=== PATIENT | male | born 1960 | race Caucasian/White ===

== ENCOUNTER 2018-10-05 12:41 | Inpatient (IN) | payer SELFPAY ==
[2018-10-05] MEDS ORDERED: ISOVUE-370 76%-LOCM 1 ML ONE (13:57)
[2018-10-05 14:12] LABS: #Eosinphils 0.1 thou/uL (0.0-0.7); #Lymphocytes 0.6 thou/uL (1.20-3.40); #Monocytes 0.6 thou/uL (0.11-0.59); #Neutrophils 5.6 thou/uL (1.40-6.50); %Basophils 0.3 % (0.0-1.0); %Eosinophils 1.9 % (0.0-10.0); %Lymphocytes 8.7 % (21.0-51.0); %Monocytes 9.2 % (0.0-10.0); Hemoglobin 15.7 g/dL (14.0-18.0); Mean Corpuscular HGB CONC 31.5 g/dL (32.0-36.0); Mean Corpuscular Hemoglobin 25.3 pg (27.0-31.0); Mean Corpuscular Volume 80.2 fL (78.0-98.0); Mean Platelet Volume 7.4 fL (7.4-10.4); Platelet Count 224 thou/uL (130-400); RBC Distribution Width 16.5 % (11.5-14.5); Red Blood Cell (RBC) Count 6.23 mill/uL (4.70-6.10)
[2018-10-05 14:16] LABS: INR-International Normal Ratio 1.2; PTT 33.5 SEC (22.9-36.1); Prothrombin Time 15.2 SEC (12.0-14.7)
[2018-10-05 14:32] LABS: ALT (SGPT) 9 U/L (8-55); AST (SGOT) 36 U/L (5-34); Albumin 3.3 g/dL (3.5-5.0); Alkaline Phosphatase 186 U/L (40-150); Anion Gap 14 mmol/L (10-20); BUN (Urea Nitrogen) 22 mg/dL (8.4-25.7); Bilirubin, Total 5.2 mg/dL (0.2-1.2); Calc. Creatinine Clearance 0 mL/min (70-130); Calcium 9.5 mg/dL (7.8-10.44); Carbon Dioxide 30 mmol/L (22-29); Chloride 88 mmol/L (98-107); Estimated GFR-MDRD 58; Globulin 4.8 g/dL (2.4-3.5); Glucose 118 mg/dL (70-105); Lipase 7 U/L (8-78); Protein, Total 8.1 g/dL (6.0-8.3); Sodium 128 mmol/L (136-145)
--- NOTE | 2018-10-05 16:48 | ULT ---
Sonogram right upper quadrant HISTORY: Right upper quadrant pain. FINDINGS: Gallbladder is incompletely distended. No internal stones are apparent. Common duct is 0.6 cm. Liver has a heterogeneous echotexture without focal mass or intrahepatic biliary dilatation. Small amount of free fluid within the right upper quadrant. IMPRESSION: No evidence of gallstones or biliary obstruction. Small amount of free fluid right upper quadrant.
--- NOTE | 2018-10-05 16:53 | ULT ---
Scrotal sonogram with duplex evaluation HISTORY: Testicular pain and swelling. FINDINGS: Right testicle is 4.0 cm and left is 4.8 cm. Each has a normal appearance with good color a nd spectral Doppler flow. Small amount of fluid within the right side of the scrotum. Neither epididymis well delineated. There is marked thickening of the skin overlying both sides of the scrotu m. IMPRESSION: No evidence of testicular mass or torsion. Prominent diffuse scrotal skin thickening. Very small right hydrocele.
--- NOTE | 2018-10-05 17:07 | PDOC.FPRHP ---
- History of Present Illness Chief Complaint: Abdominal and scrotal swelling History of Present Illness: 58 yo M with past medical history of Cirrhosis presents with scrotal swelling, abdominal distention, and cough and was recently seen in [facility] 1 week ago for the same symptoms. 2 weeks ago patient noticed increased swelling of lower abdomen, swelling, and legs. He was seen at [facility] in [place] who placed him on Furosemide and Spironolactone. Patient reports swelling never improved and continued to worsen. Increased coughing in past week but first started 2-3 weeks ago. Noticed increased swelling with breakdown bleeding in his scrotum that caused him to come in today. 120 mg of liquid Lasix, kept 2-3hrs, sent home, doubled Furosemide from 80 to 160/day---in [facility] Cirrhosis of liver since 2016, unknown cause, has had extensive workup done by [facility], in [place] Meds: Milk Thistle, fish oil, black cumin sea oil, potassium 100mg, CoQ10 ED Course: In the ED, a CT was done in that showed scant peritoneal fluid, pulmonary edema , and a large left pleural effusion. He had a bilirubin of 5.2 and upon examination had scrotal swelling, so they did a RUQ US and Scrotal US. He did not receive Lasix in the ED. - Allergies/Adverse Reactions Allergies Allergy/AdvReac Type Severity Reaction Status Date / Time No Known Allergies Allergy Verified 10/05/18 19:38 - Home Medications Medication Instructions Recorded Confirmed Type Fish Oil 1,000 mg PO DAILY 10/05/18 10/05/18 History Furosemide [Lasix] 40 mg PO BID 10/05/18 10/05/18 History Milk Thistle 150 mg PO DAILY 10/05/18 10/05/18 History Potassium 99 mg PO DAILY 10/05/18 10/05/18 History Spironolactone 100 mg PO DAILY 10/05/18 10/05/18 History Ubidecarenone [CoQ-10] 100 mg PO DAILY 10/05/18 10/05/18 History - History PMHx: Cirrhosis, Polysubstance abuse, CHF PSHx: None FHx: Dad from heart disease. Mom has Diabetes. Social: Former smoker, quit 4 years ago. Used to smoke 1.5 ppd for many years. Denies EtOH use. Admits to marijuana use for many years, last use 3 weeks ago. - Review of Systems General: reports: fatigue. denies: fever/chills, weight/appetite/sleep changes Eyes: denies: eye pain, vision changes ENT: denies: nasal congestion, rhinorrhea Respiratory: reports: cough, shortness of breath. denies: congestion Cardiovascular: reports: edema. denies: chest pain, palpitation Gastrointestinal: reports: abdominal pain. denies: nausea, vomiting, diarrhea, constipation Genitourinary: denies: incontinence, dysuria, polyuria Skin: denies: rashes, lesions, jaundice Musculoskeletal: denies: pain, tenderness, arthritis/arthralgias Neurological: reports: weakness. denies: numbness, syncope, seizure Psychological: denies: anxiety, depression - Vital signs BP: [106/64] HR: [73] RR: [20] Tmax: [98.0] Pox: [94]% on [RA] Wt: [159 kg] - Physical Exam Constitutional: awake, alert and oriented -Constitutional: Short of breath on exam. Obese. HEENT: normocephalic and atraumatic, EOMI, conjunctiva clear, no scleral icterus , grossly normal vision, grossly normal hearing Neck: supple, FROM, no JVD Chest: no-tender to palpation Heart: RRR, normal S1/S2 Lungs: other (Breath sounds were decreased in all but the right upper lung field ) Abdomen: soft, other -Abdomen: Moderately distended abdomen, severely distended scrotum. Anasarca present with positive fluid wave. Musculoskeletal: normal structure, ROM grossly normal -Musculoskeletal: 2+ pitting edema in bilateral lower extremities. Neurological: no focal deficit, normal sensation Skin: other (Breakdown of skin on scrotum with dried blood observed.) Heme/Lymphatic: no purpura, no petechia Psychiatric: normal mood and affect, good judgment and insight, intact recent and remote memory FMR H&P: Results - Labs Result Diagrams: 10/06/18 04:20 10/06/18 04:20 Lab results: WBC 7.0 thou/uL (4.8-10.8) 10/05/18 13:59 Hgb 15.7 g/dL (14.0-18.0) 10/05/18 13:59 Hct 49.9 % (42.0-52.0) 10/05/18 13:59 MCV 80.2 fL (78.0-98.0) 10/05/18 13:59 Plt Count 224 thou/uL (130-400) 10/05/18 13:59 Neutrophils % 80.0 % (42.0-75.0) H 10/05/18 13:59 Sodium 128 mmol/L (136-145) L 10/05/18 13:59 Potassium 4.0 mmol/L (3.5-5.1) 10/05/18 13:59 Chloride 88 mmol/L (98-107) L 10/05/18 13:59 Carbon Dioxide 30 mmol/L (22-29) H 10/05/18 13:59 BUN 22 mg/dL (8.4-25.7) 10/05/18 13:59 Creatinine 1.28 mg/dL (0.7-1.3) 10/05/18 13:59 Glucose 118 mg/dL (70-105) H 10/05/18 13:59 Lactic Acid 2.1 mmol/L (0.5-2.2) 10/05/18 13:59 Calcium 9.5 mg/dL (7.8-10.44) 10/05/18 13:59 Total Bilirubin 5.2 mg/dL (0.2-1.2) H 10/05/18 13:59 AST 36 U/L (5-34) H 10/05/18 13:59 ALT 9 U/L (8-55) 10/05/18 13:59 Alkaline Phosphatase 186 U/L (40-150) H 10/05/18 13:59 Serum Total Protein 8.1 g/dL (6.0-8.3) 10/05/18 13:59 Albumin 3.3 g/dL (3.5-5.0) L 10/05/18 13:59 Lipase 7 U/L (8-78) L 10/05/18 13:59 FMR H&P: A/P - Problem List (1) Volume overload Current Visit: Yes Status: Acute Code(s): E87.70 - FLUID OVERLOAD, UNSPECIFIED (2) Hyperbilirubinemia Current Visit: Yes Status: Acute Priority: Medium Code(s): E80.6 - OTHER DISORDERS OF BILIRUBIN METABOLISM (3) Elevated brain natriuretic peptide (BNP) level Current Visit: Yes Status: Acute Code(s): R79.89 - OTHER SPECIFIED ABNORMAL FINDINGS OF BLOOD CHEMISTRY (4) Pleural effusion, left Current Visit: Yes Status: Acute Priority: Medium Code(s): J90 - PLEURAL EFFUSION, NOT ELSEWHERE CLASSIFIED (5) Hyponatremia Current Visit: Yes Status: Acute Priority: Medium Code(s): E87.1 - HYPO- OSMOLALITY AND HYPONATREMIA (6) Scrotal swelling Current Visit: Yes Status: Acute Code(s): N50.89 - OTHER SPECIFIED DISORDERS OF THE MALE GENITAL ORGANS (7) Cirrhosis Current Visit: Yes Status: Acute Code(s): K74.60 - UNSPECIFIED CIRRHOSIS OF LIVER (8) Pelvic lymphadenopathy Current Visit: Yes Status: Acute Code(s): R59.0 - LOCALIZED ENLARGED LYMPH NODES - Plan 58 yo M with history of cirrhosis who presented with abd distention, cough, scrotal swelling who was admitted for hyponatremia. 1. Volume Overload * CHF vs. Cirrhosis * Scrotal swelling with anasarca and Left pleural effusion, will see if there is resolution with diuresis * BNP: 230 at [facility] * Lasix 80 mg IV now and scheduled BID * Restart Spironolactone home medication * Order ECHO, CMP, Lipid panel, HIV, RPR, A1C, Repeat BNP * Strict I&Os, Daily weight checks. 2. Hyponatremia * Thought to be chronic: Na 1 wk ago 131 > Now 128 * No AMS, Seizures, AAOx3 * Urine Osm and Na 3. Hyperbilirubenemia * Bili: 5.2, which is increased from [place] * Elevated Alk Phos: 169, AST: 39 * Coag panel pending * Ordered: Hepatitis panel, Direct Bili, and Ammonia Code status: Full code Diet: Heart healthy diet with fluid restriction DVT Prophylaxis: SCDs FMR H&P: Upper Level - Plan Date/Time: 10/05/18 1704 58 yo male with pmhx of cirrhosis, unknown etiology, presents with s/s of volume overload. Vitals: stable PE: edematous (pitting) scrotal swelling lower extremity pitting edema bilaterally to hips with anasarca present, obvious venous stasis nontender abdomen however protuberent, no fluid wave present distant heart sounds decreased breath sounds, crackles left sided lung Labs: BNP: 235 (7/10) Bili: 5.2 Alk phosph 186 AST 39 glucose 118 Na 128 Cl [address]: minimal ascites, pulmonary edema, left pulmonary effusion, diffuse pelvic lymphadenopathy Abdominal US: no gallstones/cholecystitis Testicular US: negative for mass or torsion. A/P: #Elevated BNP and Volume overload-2/2 suspected CHF vs cirrhosis, will order an echo and give 80IV lasix now as the pt has been taking 80mg PO BID at home. Will reassess fluid status in the am and continue with lasix. Will restart home spironolactone once patient med rec'd. Pt placed on strict I/Os, daily weights, heart healthy diet with fluid restriction. #Scrotal Swelling-scrotal US negative for torsion. Suspect 2/2 CHF vs cirrhosis , see above. #New left pleural effusion with cough and mild shortness of breath-suspected 2/ 2 CHF vs cirrhosis, although cannot rule out malignancy. Saturating well on room air. Will order 80iv lasix and consider diagnostic thoracentesis in the am. #Pelvic lymphadenopathy-Suspect lymphoproliferative disorder. Consider lymph node biopsy, possibly with interventional radiology consult? Vs outpatient workup #Hyponatremia-2/2 chf vs cirrhosis, will check urine sodium, osms to rule out other causes, will recheck cmp in the am #Hyperbilirubinemia-with elevated alk phosh and AST, RUQ negative for gallbladder disease, will check a hepatitis panel, HIV/RPR, coag panel, total and direct bilirubin, and ammonia #[id number] belly, not concerned for SBP, abdominal CT with minimal fluid for draining/paracentesis. Ammonia ordered. Pt alert and oriented x 3. Kidney function wnl. Uknown etiology. Hep B/C ordered. Denies alcohol use. #Obesity-will check lipid panel, hba1c Diet: HH, fluid restrict Activity: as tolerated CODE: full DVT: Cristobal Ellis MD, PGY-3 Addendum - Attending - Attending Attestation Date/Time: 10/06/18 7775 I personally evaluated the patient and discussed the management with Dr. Ellis and Maral. Seen on day of admission. I agree with the History, Examination, Assessment and Plan documented above with any addition or exceptions noted below. No distress. No sob currently. RRR, lungs with bilateral basilar crackles and distant lung sounds - effusion not readily noted BS+, NTTP, no fluid wave on my exam, just obesity Marked scrotal and suprapubic swelling, as well as lower extremity edema Labs and imaging reviewed. Urine studies pending. 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 Tobacco history noted. -low suspicion of spont bact empyema, but would d/w pulm or GI in AM -I attempted to locate the ultrasound for 30 minutes to characterize it but was unable to find the machine Lympadenopathy -will likely consult in AM to discuss biopsy vs other workup
--- NOTE | 2018-10-05 17:08 | CT ---
CT ABDOMEN AND PELVIS WITH CONTRAST: 10/05/18 HISTORY: Cirrhosis. Abdominal pain. COMPARISON: None. FINDINGS: There is moderate pulmonary edema. Moderate layering left pleural effusion. No significant pericardial effusion. The hepatic contour appears cirrhotic. There is some small volum e ascites within the abdomen. Mild third spacing of fluid. Normal proximal small bowel rotation. Mild pancreatic atrophy. Spleen is unremarkable. No hydronephrosis. Celiac trunk and superior mesenteric arteries are patent. Numerous mildly prominent lymph nodes are present in the external iliac as well as the inguinal regio n bilaterally which are symmetric. Also retroperitoneal and periaortic lymph nodes. There is also ab normal very enlarged bilateral external iliac lymph nodes with short axis measurements of 2 cm. There is skin thickening of the lower abdominal wall. There are also abnormally enlarged lateral vasc ular lymph nodes as well as obturator lymph nodes. Small diverticular disease sigmoid colon without active current inflammation. IMPRESSION: 1. Moderate pulmonary edema and moderate layering left pleural effusion. 2. Small volume ascites not likely enough for paracentesis. 3. Extensive pelvic adenopathy. Outpatient workup for lymphoproliferative disorder is recommende d. There are bilateral relatively asymmetric external iliac and internal iliac obturator lymph nodes as well as lateral vascular lymph nodes and inguinal lymph nodes. 4. Hepatic cirrhosis and mild splenomegaly. 5. Mild diverticular disease sigmoid colon without active current inflammation. POS: HOME
[2018-10-05 17:52] LABS: Bilirubin Negative (Negative); Blood, Urine Negative (Negative); Clarity Clear (Clear); Glucose, Urine (Dipstick) Normal (Negative); Leukocyte Negative Leu/uL (Negative); Nitrite Negative (Negative); Protein, Urine (Dipstick) Negative (Neg-Trace); Urobilinogen 3 mg/dL (Less than 2)
[2018-10-05 18:11] LABS: Lactic Acid 2.6 mmol/L (0.5-2.2)
[2018-10-05] MEDS ORDERED: Ondansetron ODT 4 MG TAB SL PRN (18:46)
[2018-10-05] MEDS ORDERED: Ondansetron PF 4 MG/2 ML Vial IVP PRN (18:46)
[2018-10-05] MEDS ORDERED: Acetaminophen 325 MG TAB PO PRN (18:46)
[2018-10-05] MEDS ORDERED: HYDROcodone/Acetaminophen 5/325 mg Tablet PO PRN ×2 (18:46)
[2018-10-05] MEDS ORDERED: Calcium Carbonate 500 MG ChewTAB PO PRN (19:16)
[2018-10-05] MEDS ORDERED: Ondansetron ODT 4 MG TAB PO PRN (19:16)
[2018-10-05] MEDS ORDERED: Senokot S 8.6-50 MG TAB PO PRN (19:16)
[2018-10-05] MEDS ORDERED: Furosemide 100 MG/10 ML VIAL SLOW IVP SCH (19:45)
[2018-10-05 19:53] LABS: HBSAg Index 0.34 S/CO (0-0.99); HIV (1/2) Antibody/Antigen Non-Reactive (NonReactive); HIV 1/2 INDEX 0.16 S/CO (<1.00); Hep B Surf Ag Non-Reactive S/CO (NonReactive); Hep C IgG Ab Non-Reactive (NonReactive); Hep C Index 0.11 S/CO (0-0.79); Syphilis Antibody Nonreactive (Nonreactive); Syphilis Antibody Index 0.06 S/CO (<1.00 Non-Reactive)
[2018-10-05 20:00] VITALS: BMI 43.2
[2018-10-06 04:35] LABS: #Basophils 0.1 thou/uL (0.0-0.2); #Eosinphils 0.1 thou/uL (0.0-0.7); #Lymphocytes 0.7 thou/uL (1.20-3.40); #Monocytes 0.9 thou/uL (0.11-0.59); #Neutrophils 5.3 thou/uL (1.40-6.50); %Basophils 0.9 % (0.0-1.0); %Eosinophils 1.9 % (0.0-10.0); %Lymphocytes 9.2 % (21.0-51.0); %Monocytes 12.5 % (0.0-10.0); %Neutrophils 75.5 % (42.0-75.0); Hemoglobin 14.6 g/dL (14.0-18.0); Mean Corpuscular HGB CONC 31.5 g/dL (32.0-36.0); Mean Corpuscular Hemoglobin 25.5 pg (27.0-31.0); Mean Corpuscular Volume 80.7 fL (78.0-98.0); Mean Platelet Volume 7.3 fL (7.4-10.4); Platelet Count 219 thou/uL (130-400); RBC Distribution Width 16.2 % (11.5-14.5); Red Blood Cell (RBC) Count 5.72 mill/uL (4.70-6.10)
[2018-10-06 04:59] LABS: ALT (SGPT) 10 U/L (8-55); AST (SGOT) 40 U/L (5-34); Alkaline Phosphatase 169 U/L (40-150); Anion Gap 15 mmol/L (10-20); BUN (Urea Nitrogen) 23 mg/dL (8.4-25.7); Bilirubin, Total 5.1 mg/dL (0.2-1.2); Calc. Creatinine Clearance 141 mL/min (70-130); Calcium 9.4 mg/dL (7.8-10.44); Carbon Dioxide 30 mmol/L (22-29); Chloride 88 mmol/L (98-107); Estimated GFR-MDRD 60; Glucose 99 mg/dL (70-105); Potassium 4.3 mmol/L (3.5-5.1); Sodium 129 mmol/L (136-145)
--- NOTE | 2018-10-06 05:09 | PDOC.FM ---
- Subjective Subjective: Pt says he feels like he can breath a little easier. He reports pain in his scrotum only when getting up from using the bathroom. He says he does feel improved from yesterday and lasix were effective. - Objective MAR Reviewed: Yes Vital Signs & Weight: Vital Signs (12 hours) Temp Pulse Resp BP BP Pulse Ox 10/06/18 04:05 97.5 F L 78 18 113/56 L 92 L 10/05/18 23:42 97.9 F 75 20 106/56 L 92 L 10/05/18 18:33 97.7 F 76 20 117/67 92 L Weight Weight 152.044 kg I&O: 10/04/18 10/05/18 10/06/18 06:59 06:59 06:59 Output Total 1750 Balance -1750 Result Diagrams: 10/06/18 04:20 10/06/18 04:20 EKG Reviewed by me: Yes (Prolonged QT but otherwise Normal sinus rhythm) Radiology Reviewed by me: Yes (CT Chest/Abd/Pelvis: L pleural effusion, scan peritoneal fluid, inguinalLAD) Phys Exam - Physical Examination Constitutional: NAD HEENT: PERRLA, moist MMs Neck: no nodes Breath sounds only evident in right upper lung field Cardiovascular: RRR, no significant murmur Gastrointestinal: soft, non-tender, positive bowel sounds Musculoskeletal: edema present (Present all over, but seems to be somewhat improved from yesterday.) Neurological: non-focal, moves all 4 limbs Lymphatic: no nodes Psychiatric: normal affect, A&O x 3 Deviation from normal: Venous stasis up to mid calf. Dx/Plan (1) Volume overload Code(s): E87.70 - FLUID OVERLOAD, UNSPECIFIED Status: Acute (2) Hyperbilirubinemia Code(s): E80.6 - OTHER DISORDERS OF BILIRUBIN METABOLISM Status: Acute (3) Elevated brain natriuretic peptide (BNP) level Code(s): R79.89 - OTHER SPECIFIED ABNORMAL FINDINGS OF BLOOD CHEMISTRY Status : Acute (4) Pleural effusion, left Code(s): J90 - PLEURAL EFFUSION, NOT ELSEWHERE CLASSIFIED Status: Acute (5) Hyponatremia Code(s): E87.1 - HYPO-OSMOLALITY AND HYPONATREMIA Status: Acute (6) Scrotal swelling Code(s): N50.89 - OTHER SPECIFIED DISORDERS OF THE MALE GENITAL ORGANS Status : Acute (7) Cirrhosis Code(s): K74.60 - UNSPECIFIED CIRRHOSIS OF LIVER Status: Acute (8) Pelvic lymphadenopathy Code(s): R59.0 - LOCALIZED ENLARGED LYMPH NODES Status: Acute - Plan Plan: 58 yo M with history of cirrhosis who presented with abd distention, cough, scrotal swelling who was admitted for hyponatremia. 1. Volume Overload * CHF vs. Cirrhosis * Scrotal swelling with anasarca and Left pleural effusion, will see if there is resolution with diuresis * BNP: 230 at [facility], 354.9 today * Lasix 80 mg IV now and scheduled BID * Restart Spironolactone home medication * Ordered ECHO, CMP, Lipid panel, HIV, RPR, A1C, Repeat BNP * Strict I&Os, Daily weight checks. 2. Cirrhosis * non-tender belly, not concerned for SBP * Abdominal CT shows minimal fluid for draining/paracentesis * Ammonia ordered. * AAOx 3. * Kidney function wnl. * Unknown etiology. * Hep B/C neg * Ordered ESR, CRP, Iron studies, ALEJANDRINA, Anti-Sm * Denies alcohol use. 3. Hyponatremia * Thought to be chronic: Na 1 wk ago 131 -> 128 yesterday -> 129 today * No AMS, Seizures, AAOx3 * Urine Osm: 370, Na: 51, likely related to cirrhosis * Will recheck CMP in am 4. Hyperbilirubenemia * Bili: 5.2, which is increased from [place] * Elevated Alk Phos: 169, AST: 39 on admission, Hep panel Negative, Direct Bili2.7 * Coag panel pending * RUQ: Negative for gallbladder disease. * Ordered: Hepatitis panel, Direct Bili, and Ammonia 5. Scrotal Swelling * Scrotal US negative for torsion * Suspect 2/2 CHF vs cirrhosis. 6. New left pleural effusion with cough and SOB * Suspected 2/2 CHF vs cirrhosis, although cannot rule out malignancy. * Saturating moderately well on room air. * Will order 80 IV lasix and consider diagnostic thoracentesis in the am. * Pulm consult (10/06), appreciate recs 7. Pelvic lymphadenopathy * Suspect lymphoproliferative disorder. * IR consult (10/06), appreciate recs 8. Obesity * Will check lipid panel, hba1c Activity: As tolerated Code status: Full code Diet: Heart healthy diet with fluid restriction of 1500 cc DVT Prophylaxis: SCDs
[2018-10-06] MEDS: Spironolactone 100 MG TAB PO SCH (08:56)
[2018-10-06] MEDS ORDERED: Furosemide 100 MG/10 ML VIAL SLOW IVP SCH (09:00)
--- NOTE | 2018-10-06 12:48 | PRG ---
DATE OF SERVICE: 10/06/2018 Mr. Good is a pleasant 58-year-old man, who presented with increasing peripheral edema. He has a history of cirrhosis, whose cause currently is not known. He was found on abdominal CT to have some significant lymph node enlargement in the pelvis, which will likely need to be interventionally biopsied for diagnostic purposes. He does not give a history of any fever, night sweats, or weight loss. He also has a left-sided pleural effusion, which we will ask Pulmonology or Interventional Radiology to obtain fluid for culture and study. He is slightly hyponatremic and we are gradually replacing this with IV fluids. His hepatitis B and C serologies are negative. His HIV and RPR were likewise negative. We will also ask for input from GI regarding the cause of his cirrhosis. Job ID: [id number]
[2018-10-06] MEDS ORDERED: Furosemide 40 MG/4 ML VIAL SLOW IVP SCH (15:00)
[2018-10-06 15:07] LABS: CRP (Inflammatory) 8.48 mg/dL (= or < 0.5)
[2018-10-06 16:44] LABS: ANA Symphony (Qualitative) Negative (Negative); ANA Symphony (Quantitative) 0.2 Ratio (< 0.7 Negative); dsDNA IgG Antibody 2.2 IU/mL (<10 Negative)
--- NOTE | 2018-10-06 21:54 | PDOC.FM ---
- Subjective Subjective: Pt says shortness of breath is much improved. He feels a lot better. He still has soreness in his scrotum, but he can tell he is getting better. - Objective MAR Reviewed: Yes Vital Signs & Weight: Vital Signs (12 hours) Temp Pulse Resp BP Pulse Ox 10/06/18 19:27 98.5 F 80 16 102/57 L 93 L 10/06/18 16:00 98.3 F 74 16 107/57 L 92 L 10/06/18 11:36 97.9 F 78 18 113/64 93 L Weight Weight 152.044 kg I&O: 10/05/18 10/06/18 10/07/18 06:59 06:59 06:59 Intake Total 1500 920 Output Total 1750 1450 Balance -250 -530 Result Diagrams: 10/06/18 04:20 10/07/18 08:25 Phys Exam - Physical Examination Constitutional: NAD HEENT: PERRLA, sclera anicteric Neck: no nodes Respiratory: clear to auscultation bilateral Cardiovascular: RRR, no significant murmur Gastrointestinal: soft, non-tender, positive bowel sounds Musculoskeletal: pulses present, edema present Neurological: non-focal, moves all 4 limbs Lymphatic: no nodes Psychiatric: A&O x 3 Deviation from normal: Venous statsis ulcer Dx/Plan (1) Volume overload Code(s): E87.70 - FLUID OVERLOAD, UNSPECIFIED Status: Acute (2) Hyperbilirubinemia Code(s): E80.6 - OTHER DISORDERS OF BILIRUBIN METABOLISM Status: Acute (3) Elevated brain natriuretic peptide (BNP) level Code(s): R79.89 - OTHER SPECIFIED ABNORMAL FINDINGS OF BLOOD CHEMISTRY Status : Acute (4) Pleural effusion, left Code(s): J90 - PLEURAL EFFUSION, NOT ELSEWHERE CLASSIFIED Status: Acute (5) Hyponatremia Code(s): E87.1 - HYPO-OSMOLALITY AND HYPONATREMIA Status: Acute (6) Scrotal swelling Code(s): N50.89 - OTHER SPECIFIED DISORDERS OF THE MALE GENITAL ORGANS Status : Acute (7) Cirrhosis Code(s): K74.60 - UNSPECIFIED CIRRHOSIS OF LIVER Status: Acute (8) Pelvic lymphadenopathy Code(s): R59.0 - LOCALIZED ENLARGED LYMPH NODES Status: Acute - Plan Plan: 58 yo M with history of cirrhosis who presented with abd distention, cough, scrotal swelling who was admitted for hyponatremia. 1. Volume Overload * CHF vs. Cirrhosis * Scrotal swelling with anasarca and Left pleural effusion, will see if there is resolution with diuresis * BNP: 230 at [place], 354.9 today * He received 2 doses of Lasix 80 mg IV and 40 mg IV yesterday afternoon. * Restarted Spironolactone his home medication, but increased the dose. * Ordered ECHO, CMP, Lipid panel, HIV, RPR, A1C, Repeat BNP * Strict I&Os- -565 yesterday. Daily weight checks. * ECHO: EF was 50-55% with thickened aortic leaflets, mild mitral regurg, and a dilated IVC. 2. Cirrhosis * non-tender belly, not concerned for SBP * Abdominal CT shows minimal fluid for draining/paracentesis * Ammonia ordered. * AAOx 3. Denies alcohol use. * Kidney function wnl. * Unknown etiology. * Hep B/C neg * ESR was normal at 63, CRP was elevated at 8.48, Iron was 106, TIBC was 268, and Ferritin was 610.80, Ammonia: 41 * ALEJANDRINA & Anti-Sm were both negative. * Will consider ordering HFE gene studies to determine if he has hereditary hemochromatosis. * Consulting GI (10/04) Dr. Burton, appreciate recs. * Dr. Rojo agreed to see him outpatient. 3. Hyponatremia * Thought to be chronic: Na 128 > 129 > 129 * No AMS, Seizures, AAOx3 * Urine Osm: 370, Na: 51, likely related to cirrhosis * Will recheck CMP in am 4. Hyperbilirubenemia * Bili: 5.2, Direct Bili: 2.7, Ammonia * Elevated Alk Phos: 169, AST: 39 on admission, Hep panel Negative, Direct Bili2.7 * Coag panel pending * RUQ: Negative for gallbladder disease. 5. Scrotal Swelling * Scrotal US negative for torsion * Suspect 2/2 CHF vs cirrhosis. 6. New left pleural effusion with cough and SOB * Suspected 2/2 CHF vs cirrhosis, although cannot rule out malignancy. * Saturating moderately well on room air. * Will order 80 IV lasix and consider diagnostic thoracentesis in the am. * Pulm consult (10/06) Dr. Moe, appreciate recs. 7. Pelvic lymphadenopathy * Suspect lymphoproliferative disorder. * Consulting radiology to see if they want to do a biopsy. 8. Obesity * Lipid Panel: TG-87, Chol- 115, LDL-77, HDL- 21 * Atorvastatin 40 mg started * A1C: 6.1% Activity: As tolerated. PT/OT consulted Code status: Full code Diet: Heart healthy diet with fluid restriction of 1500 cc DVT Prophylaxis: SCDs
[2018-10-07 04:25] LABS: Hemoglobin A1c 6.1 % (4.0-6.0)
--- NOTE | 2018-10-07 04:37 | CON ---
DATE OF CONSULTATION: 10/06/2018 HISTORY OF PRESENT ILLNESS: Mr. 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 He has moved up to the [place] area to live on a piece of property that he owns. He says he has been drinking more fluid because of the hot summer and eating more watermelon than he normally does. He presented with anasarca. He has a history of cirrhosis worked up in 2017 at [facility]. He never did have a liver biopsy. He was on Lasix 40 twice a day and 100 mg of spironolactone in the morning. He has had a lifelong history of obesity. His scrotal swelling is the main reason that he came to the emergency room. PAST MEDICAL HISTORY: Remarkable reportedly for cardiomyopathy according to the records, but he did not volunteer this to me. SOCIAL HISTORY: He is a heavy smoker all of his life, but quit a few years ago. He is not a daily drinker. FAMILY HISTORY: Positive for diabetes and vascular disease. REVIEW OF SYSTEMS: Ten point review of systems completed, otherwise negative. PHYSICAL EXAMINATION: GENERAL: A very pleasant gentleman, in no distress. VITAL SIGNS: He is afebrile. Heart rate is 80, respiratory rate is 16, oximetry is 93% on room air, blood pressure 102/57. HEENT: Pupils are equal. Sclerae anicteric. NECK: Supple. No lymphadenopathy. LUNGS: Remarkable for decreased breath sounds at his bases. HEART: Regular rhythm. S1 and S2 are normal. I do not hear murmur or gallop. ABDOMEN: Quite large (he weighs 335 pounds and is 6 feet 2 inches tall). He has stasis changes under his pannus and above his scrotum, and he has a fairly massive scrotum that is about the size of two soft balls. EXTREMITIES: He has thickening of his skin to his knees and stasis changes in both lower extremities. He has never had a sleep study and never been told he snore as an adult, but he says when he was young he snored a lot. He had an abdomen and pelvis CT done yesterday. He had a small amount of ascites. He had small abdominal lymph nodes bilaterally along his iliac and retroperitoneal and periaortic lymph nodes. The skin thickening in his lower abdominal wall could be seen on CT. He had diverticulosis. I reviewed the bottom of his lung windows. He has dependent atelectasis. He has small bilateral pleural effusions. These are not large enough to justify thoracentesis in my opinion. IMPRESSION: Anasarca with significant amount of scrotal edema, a small amount of abdominal ascites and significant lower extremity edema. I would guess with a weight of 335 reported on admission, he has at least 30 to 40 pounds of extra volume on board. He says he has been hospitalized multiple times at [facility] and diuresed. His renal function will have to be watched closely while he is here. Does have modestly elevated ferritin, but I doubt he has hemochromatosis. He does have a bilirubin of 5.1, AST of 40, ALT of 10, and alkaline phosphatase 169. His echocardiogram was normal. His albumin was 3, which is not as low as I was expecting. His INR is 1.2, so he still has good liver synthetic function. I have talked to Dr. Rojo about him and he is happy to follow him in clinic. He will need a focusing machine operator to follow him possibly even monthly for a while, now he is living up in this area. He does not appear to have systolic heart failure. Looking at his echocardiogram, there is no mention of diastolic dysfunction. I would not be surprised if he has sleep apnea. At some point as an outpatient at a minimum, he needs a home sleep study and ideally he needs an inpatient sleep study, but he is uninsured. It is unclear to me what the kwon jones currently is for his inpatient sleep study, but he would probably benefit from this. He continued to be gently diuresed using IV diuretics. He does not need a paracentesis. With an albumin of 3, probably he would not benefit from an albumin infusion. He should be weighed every day and Physical Therapy needs to get involved with him. Probably can go up more on his Aldactone since his potassium is 4.3. I suspect he has cirrhosis secondary to chronic fatty liver. Old records from [facility] would be helpful. The doctors in [place] did talk to him at some point may be getting in to see a transplant doctor given his young age. It is not clearly needed at this point, but gastroenterologists will be helpful in deciding when transplantation would be, but transplantation evaluation would be necessary. This is a 70 minute consult, with greater than 50% of time spent on unit coordinating care. Job ID: [id number]
[2018-10-07 04:47] LABS: Cardiac Risk 5.5 (Less than 4.5)
[2018-10-07] MEDS ORDERED: Furosemide 40 MG/4 ML VIAL SLOW IVP SCH ×2 (06:00→08:10)
--- NOTE | 2018-10-07 07:48 | CON ---
DATE OF CONSULTATION: REASON FOR CONSULTATION: Abdominal swelling, scrotal edema, and mild pedal edema. HISTORY OF PRESENT ILLNESS: Mr. Geovanni Good is a very pleasant, obese 58-year-old male, hospitalized because of what appears to be anasarca. He has scrotal swelling and also edema of the abdominal wall and chest x-ray left pleural effusion. He also has minimal ascites. The patient used to live in [place] before. He has seen Dr. Figueroa with care provider in [place]. Dr. Figueroa told him that he has liver cirrhosis about 2 years ago. The etiology is liver cirrhosis is unclear. The patient is a social drinker, but never used to drink heavy alcohol intake. The patient has no history of drug abuse. No history of any hepatitis. No family history of liver disease. The patient has been hospitalized off and on over the last couple of years at [facility]. He has been hospitalized with similar symptoms like scrotal swelling, abdominal bloating, and leg swelling. The patient tells me that everything goes away when they give him some IV Lasix and put on a low-salt diet and things right away goes away. This time, this has been going on for last couple of weeks. He has since gained about 25 pounds over the last probably about few years. The patient has question of history of heart disease. At some point in time, he was told in [place] area that he possibly has heart disease. The patient has been very active until 2016. Over the last 2 years, he has not been very active and feels short-winded when he walks. He is also obese. Denies any abdominal pain. No chest pain. No difficulty breathing. In fact, he is lying down flat and he is not short of breath. Dyspnea is more of when he tries to exert. He has no hematochezia, no melena. He has had a colonoscopy 2 years ago and he was told he might come back for a colonoscopy because they could not complete the exam for the patient. He never had an EEG done before. He has no relevant history. ALLERGIES: NONE. SOCIAL HISTORY: He smokes a pack of cigarettes per day until 4 years ago. Quit smoking 4 years ago. He also has history of marijuana abuse for years. He quit drinking alcohol at the age of 31, usually he used to drink mostly on the weekend, a couple of beers here and there. No heavy alcohol intake. No IV drug abuse. MEDICAL ILLNESSES: 1. Liver cirrhosis. 2. Ascites and scrotal swelling from before the last couple of years off and on. There is questionable history of heart disease. No history of lung disease. No diabetes. No hypertension. FAMILY HISTORY: Mother with dementia. The family recently moved out from [place] to [place]. He just moved here about couple of months ago. SURGERIES: No major surgical procedures. 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 No seizure disorder. No syncope. No TIA. RESPIRATORY: History of dyspnea with exertion. No chronic coughing. No hemoptysis. CARDIOVASCULAR SYSTEM: No chest pain. No palpitation, orthopnea. Does have history of exertional dyspnea. GASTROINTESTINAL: No hematochezia. No melena. No hematemesis. No vomiting of coffee-ground material. No abdominal pain. GENITOURINARY: No dysuria, hematuria, or frequency. MUSCULOSKELETAL: Unremarkable. ENDOCRINE: Unremarkable. HEENT: Nonrelevant. MEDICATION LIST: Reviewed. He was taking basically milk thistle, fish oil, black cumin sea oil, potassium, etc. He was also start taking CoQ10 PHYSICAL EXAMINATION: GENERAL: The patient is obese, appears very comfortable. He is actually lying down on his back and not feeling short of breath. VITAL SIGNS: Afebrile. Pulse is 74, blood pressure is 107/57. HEENT: Conjunctivae clear. NECK: Supple. No adenitis or thyromegaly. CARDIOVASCULAR SYSTEM: First and second heart sounds heard. LUNGS: Clear to auscultation. ABDOMEN: He appears have subcutaneous edema. Abdomen is nontender. No organomegaly or masses. EXTREMITIES: Chronic stasis dermatitis. SKIN: Feels very rough and hyperpigmented. Has trace edema. He has marked scrotal swelling and edema. LABORATORY DATA: CBC; WBC 7000, hemoglobin is 14.6, hematocrit 46.2, MCV 80.7, platelet count is 219,000, polymorphs 75, lymphocytes 9, monocytes 12. Serum chemistries, he has hyponatremia. Sodium 129, potassium 4.3, chloride 88, bicarb 30, BUN is 23, creatinine is 1.24, glucose is 99. Lactic acid is 2.6, calcium 9.4, iron 106, TIBC 268, bilirubin is 5.1, AST is 40, ALT 10, alkaline phosphatase 169. BNP slightly high at 354. Albumin is 3. CLINICAL IMPRESSION: 1. 58-year-old male with liver cirrhosis of unknown etiology. He has had ascites and scrotal edema in the past, this has been going on over the last 2 years. He has been hospitalized in [facility] couple of times with scrotal swelling. He says with IV Lasix, he gets better right away. At this time, the swelling is still there, not getting better. The etiology is unclear at the present time. 2. Hyponatremia, hypokalemia indicative of free water deficiency. 3. Abnormal liver function tests due to underlying liver cirrhosis. He had a CAT scan of the abdomen which really does not show any liver masses, but does show findings of liver cirrhosis. He also has very minimal ascites that are not palpable. The CAT scan shows mild pulmonary edema and left pleural effusion. RECOMMENDATIONS: 1. Low-sodium diet. 2. IV Lasix. 3. Consider IV albumin 25 g every 8 hours for the next 2 to 3 days to promote diuresis and absorb Further recommendation depending on the hospital course. Job ID: [id number]
[2018-10-07] MEDS: Spironolactone 100 MG TAB PO SCH ×3 (08:20→23:02)
[2018-10-07 08:57] LABS: ALT (SGPT) 9 U/L (8-55); AST (SGOT) 38 U/L (5-34); Albumin 3.1 g/dL (3.5-5.0); Alkaline Phosphatase 171 U/L (40-150); Anion Gap 16 mmol/L (10-20); BUN (Urea Nitrogen) 22 mg/dL (8.4-25.7); Bilirubin, Total 5.7 mg/dL (0.2-1.2); Calc. Creatinine Clearance 142 mL/min (70-130); Calcium 9.6 mg/dL (7.8-10.44); Carbon Dioxide 29 mmol/L (22-29); Chloride 88 mmol/L (98-107); Estimated GFR-MDRD 62; Globulin 4.9 g/dL (2.4-3.5); Glucose 99 mg/dL (70-105); Potassium 4.3 mmol/L (3.5-5.1); Sodium 129 mmol/L (136-145)
[2018-10-07] MEDS ORDERED: Furosemide 100 MG/10 ML VIAL SLOW IVP SCH (09:15)
--- NOTE | 2018-10-07 11:50 | PRG ---
DATE OF SERVICE: 10/07/2018 Mr. Good is resting comfortably in bed, in no distress. He was seen in consultation by Dr. Moe and we appreciate his input. He feels that the pleural effusions are too small to warrant any thoracentesis and attributes them to the patient's total body anasarca likely from cirrhosis. In the event, however, his ferritin level is significantly elevated and this only suggests the possibility of hemochromatosis is a cause of his cirrhosis. We will proceed with genetic testing and have Mr. Good closely follow up as an outpatient. Job ID: [id number]
[2018-10-07] MEDS: Furosemide 100 MG/10 ML VIAL SLOW IVP SCH (13:27)
--- NOTE | 2018-10-07 16:22 | PRG ---
DATE OF SERVICE: 10/07/2018 SUBJECTIVE: Mr. Good said he is feeling a little bit better. His scrotum is still quite large. He is still on IV Lasix. OBJECTIVE: LUNGS: Clear. HEART: Regular rhythm. ABDOMEN: Soft, fairly massive. EXTREMITIES: With severe stasis changes and edema. IMPRESSION AND PLAN: Pleural effusion secondary to his liver disease. He needs to be plugged in with a local business development manager. I have already contacted one of him and he will be happy to see him as an outpatient. There is no reason for me to perform thoracentesis at this time. He does not have enough fluid to perform a paracentesis. Should continue with diuresis in my opinion and close outpatient followup of his weight and his electrolytes and renal function. Job ID: [id number]
--- NOTE | 2018-10-07 19:16 | PRG ---
DATE OF SERVICE: 10/07/2018 SUBJECTIVE: This is a 58-year-old male, admitted to the hospital because of ascites, fluid retention, also scrotal edema. He has history of liver cirrhosis from before. The patient has had ascites and scrotal edema in the past. He did respond to low-salt diet and diuretics. The patient's abdominal CAT scan shows minimal ascites that are not drainable. The patient is slowly getting better. No abdominal pain PHYSICAL EXAMINATION: GENERAL: He is obese. VITAL SIGNS: Afebrile. Pulse is 79, blood pressure 102/68. CARDIOVASCULAR: Within normal limits. LUNGS: Within normal limits. ABDOMEN: Soft. Abdomen is nontender. There are no organomegaly or masses. Bowel sounds normal. RECOMMENDATIONS: 1. Continue low-salt diet. 2. Continue diuretics. 3. Increase ambulation. Job ID: [id number]
[2018-10-07] MEDS: Atorvastatin Calcium 40 MG TAB PO SCH (21:22)
[2018-10-07] MEDS ORDERED: Clopidogrel Bisulfate 75 MG TAB ONE (22:29)
--- NOTE | 2018-10-08 05:47 | PDOC.FM ---
- Subjective Subjective: He says he is steadily improving. He walked around some yesterday. He is eating well. - Objective MAR Reviewed: Yes Vital Signs & Weight: Vital Signs (12 hours) Temp Pulse Resp BP Pulse Ox 10/08/18 04:00 97.8 F 69 20 101/67 92 L 10/08/18 00:00 98.4 F 69 20 117/74 10/07/18 20:00 98.1 F 75 20 110/70 93 L Weight Weight 147.78 kg I&O: 10/06/18 10/07/18 10/08/18 06:59 06:59 06:59 Intake Total 1500 1460 990 Output Total 1750 2024 2185 Balance -601 -852 -5121 Result Diagrams: 10/06/18 04:20 10/08/18 05:39 Phys Exam - Physical Examination Constitutional: NAD HEENT: PERRLA, moist MMs Neck: supple Decreased breath sounds in all but right upper lung field Cardiovascular: RRR, no significant murmur Gastrointestinal: soft, non-tender Musculoskeletal: edema present Neurological: non-focal, moves all 4 limbs Lymphatic: no nodes Psychiatric: normal affect, A&O x 3 Deviation from normal: Venous Stasis Ulcer Dx/Plan (1) Volume overload Code(s): E87.70 - FLUID OVERLOAD, UNSPECIFIED Status: Acute Qualifiers: Hypervolemia type: other Qualified Code(s): E87.79 - Other fluid overload (2) Hyperbilirubinemia Code(s): E80.6 - OTHER DISORDERS OF BILIRUBIN METABOLISM Status: Acute (3) Elevated brain natriuretic peptide (BNP) level Code(s): R79.89 - OTHER SPECIFIED ABNORMAL FINDINGS OF BLOOD CHEMISTRY Status : Acute (4) Pleural effusion, left Code(s): J90 - PLEURAL EFFUSION, NOT ELSEWHERE CLASSIFIED Status: Acute (5) Hyponatremia Code(s): E87.1 - HYPO-OSMOLALITY AND HYPONATREMIA Status: Acute (6) Scrotal swelling Code(s): N50.89 - OTHER SPECIFIED DISORDERS OF THE MALE GENITAL ORGANS Status : Acute (7) Cirrhosis Code(s): K74.60 - UNSPECIFIED CIRRHOSIS OF LIVER Status: Acute Qualifiers: Hepatic cirrhosis type: unspecified hepatic cirrhosis Ascites presence: with ascites Qualified Code(s): K74.60 - Unspecified cirrhosis of liver; R18.8 - Other ascites (8) Pelvic lymphadenopathy Code(s): R59.0 - LOCALIZED ENLARGED LYMPH NODES Status: Acute - Plan Plan: 58 yo M with history of cirrhosis who presented with abd distention, cough, scrotal swelling who was admitted for hyponatremia. 1. Volume Overload * CHF vs. Cirrhosis * Scrotal swelling with anasarca and Left pleural effusion, will see if there is resolution with diuresis * BNP: 230 at [place], 354.9 this visit * He received 2 doses of Lasix 80 mg IV yesterday. Will do again today. * Restarted Spironolactone his home medication, but increased the dose. * Strict I&Os- -2635 yesterday. Daily weight checks. Weight down 5 kg. * ECHO: EF was 50-55% with thickened aortic leaflets, mild mitral regurg, and a dilated IVC. 2. Cirrhosis * Non-tender belly, not concerned for SBP * Adominal CT shows minimal fluid for draining/paracentesis * AAOx 3. Denies alcohol use. * Kidney function wnl. * Unknown etiology. Will need to follow up outpt with GI. * Hep B/C neg * ESR was normal at 63, CRP was elevated at 8.48, Iron was 106, TIBC was 268, and Ferritin was 610.80, Ammonia: 41, AST:36 down from 40. * ALEJANDRINA & Anti-Sm were both negative. * Ordered HFE gene studies to determine if he has hereditary hemochromatosis. * Consulted GI (10/07) Dr. Wiseman, appreciate recs. * Dr. Rojo agreed to see him outpatient. 3. Hyponatremia * Chronic: Na 128 > 129 > 129 > 127 * No AMS, Seizures, AAOx3 * Urine Osm: 370, Na: 51, likely related to cirrhosis * Will recheck CMP in am 4. Hyperbilirubenemia * Bili: 5.2, Direct Bili: 2.7, Ammonia * Elevated Alk Phos: 169, AST: 39 on admission, Hep panel Negative, Direct Bili2.7 * Coag panel pending * RUQ: Negative for gallbladder disease. 5. Scrotal Swelling * Scrotal US negative for torsion * Suspect 2/2 CHF vs cirrhosis. 6. New left pleural effusion with cough and SOB * Suspected 2/2 CHF vs cirrhosis, although cannot rule out malignancy. * Saturating moderately well on room air. * Will order 80 IV lasix and consider diagnostic thoracentesis in the am. * Pulm consult (10/06) Dr. Moe, appreciate recs. Dr. Moe determined paracentesis is not needed at this time. 7. Pelvic lymphadenopathy * Suspect lymphoproliferative disorder. * Consulting radiology to see if they want to do a biopsy. 8. Obesity * Lipid Panel: TG-87, Chol- 115, LDL-77, HDL- 21 * Atorvastatin 40 mg started * A1C: 6.1% Activity: As tolerated. PT/OT consulted Code status: Full code Diet: HH DVT Prophylaxis: SCDs
[2018-10-08] MEDS: Furosemide 100 MG/10 ML VIAL SLOW IVP SCH ×2 (06:36→15:09)
[2018-10-08 06:43] LABS: ALT (SGPT) 9 U/L (8-55); AST (SGOT) 36 U/L (5-34); Alkaline Phosphatase 163 U/L (40-150); Anion Gap 16 mmol/L (10-20); BUN (Urea Nitrogen) 24 mg/dL (8.4-25.7); Bilirubin, Total 4.9 mg/dL (0.2-1.2); Calc. Creatinine Clearance 143 mL/min (70-130); Calcium 9.4 mg/dL (7.8-10.44); Carbon Dioxide 28 mmol/L (22-29); Chloride 87 mmol/L (98-107); Estimated GFR-MDRD 63; Globulin 4.8 g/dL (2.4-3.5); Glucose 94 mg/dL (70-105); Potassium 3.6 mmol/L (3.5-5.1); Protein, Total 7.8 g/dL (6.0-8.3); Sodium 127 mmol/L (136-145)
[2018-10-08] MEDS: Spironolactone 100 MG TAB PO SCH ×2 (08:17→20:19)
--- NOTE | 2018-10-08 11:27 | PRG ---
DATE OF SERVICE: 10/08/2018 Mr. Good looks and feels much better this morning. We did some iron studies given that the patient has an unexplained cirrhosis. These are consistent with possible hemochromatosis given that his ferritin level was above 600. We will proceed with some genetic testing for further evaluation. In the event, clinically, Mr. Good looks and feels better and we are anticipating a discharge in a day or two. Job ID: [id number]
--- NOTE | 2018-10-08 12:16 | PRG ---
DATE OF SERVICE: 10/08/2018 SUBJECTIVE: Mr. Good is doing well. He has no complaints. OBJECTIVE: VITAL SIGNS: He is afebrile. Heart rate 76, respiratory rate 18, and oximetry is 93% on room air. His intake and outputs, negative 2635. LUNGS: Clear. HEART: Regular rhythm. ABDOMEN: Soft. IMPRESSION: 1. Cirrhosis, presumably secondary to fatty liver. I have given him Dr. Rojo' phone number and name, so he can be seen sometime within the next 3 to 4 weeks as an outpatient. 2. Obesity. 3. Probable sleep apnea. 4. Small pleural effusions. I have recommended that we see him in a month for a chest x-ray. I do not feel thoracentesis be helpful. 5. Chronic venous stasis changes in both legs with thickening of his skin. Enjoyed my visit with him. I look for to see him again in the office in 3 to 4 weeks for a chest x-ray. Job ID: [id number]
[2018-10-08] MEDS: Atorvastatin Calcium 40 MG TAB PO SCH (20:19)
[2018-10-08] MEDS: Nystatin Powder 15 GM BOT TOP SCH (21:26)
--- NOTE | 2018-10-09 05:25 | PDOC.FM ---
- Subjective Subjective: Eating well. Had a hard time sleeping last night, not worried about anything. He says it is still hard to walk due to scrotal swelling. - Objective MAR Reviewed: Yes Vital Signs & Weight: Vital Signs (12 hours) Temp Pulse Resp BP Pulse Ox 10/08/18 23:54 97.7 F 69 16 108/68 94 L 10/08/18 20:50 97.6 F 66 16 96/62 94 L 10/08/18 20:00 94 L Weight Weight 147.191 kg I&O: 10/07/18 10/08/18 10/09/18 06:59 06:59 06:59 Intake Total 6050 504 6028 Output Total 2024 3908 1410 Balance -397 -2738 -302 Result Diagrams: 10/06/18 04:20 10/09/18 06:30 Phys Exam - Physical Examination Constitutional: NAD HEENT: PERRLA, sclera anicteric Neck: supple Decreased breath sounds still present except upper right lung field Cardiovascular: RRR, no significant murmur Gastrointestinal: soft, non-tender, positive bowel sounds Musculoskeletal: edema present (hard to evaluate due to venous stasis on legs but 1+ estimation) Neurological: non-focal, moves all 4 limbs Lymphatic: no nodes (subq fat makes difficult to palpate) Psychiatric: normal affect, A&O x 3 Deviation from normal: Venous stasis ulcers Dx/Plan (1) Volume overload Code(s): E87.70 - FLUID OVERLOAD, UNSPECIFIED Status: Acute Qualifiers: Hypervolemia type: other Qualified Code(s): E87.79 - Other fluid overload (2) Hyperbilirubinemia Code(s): E80.6 - OTHER DISORDERS OF BILIRUBIN METABOLISM Status: Acute (3) Elevated brain natriuretic peptide (BNP) level Code(s): R79.89 - OTHER SPECIFIED ABNORMAL FINDINGS OF BLOOD CHEMISTRY Status : Acute (4) Pleural effusion, left Code(s): J90 - PLEURAL EFFUSION, NOT ELSEWHERE CLASSIFIED Status: Acute (5) Hyponatremia Code(s): E87.1 - HYPO-OSMOLALITY AND HYPONATREMIA Status: Acute (6) Scrotal swelling Code(s): N50.89 - OTHER SPECIFIED DISORDERS OF THE MALE GENITAL ORGANS Status : Acute (7) Cirrhosis Code(s): K74.60 - UNSPECIFIED CIRRHOSIS OF LIVER Status: Acute Qualifiers: Hepatic cirrhosis type: unspecified hepatic cirrhosis Ascites presence: with ascites Qualified Code(s): K74.60 - Unspecified cirrhosis of liver; R18.8 - Other ascites (8) Pelvic lymphadenopathy Code(s): R59.0 - LOCALIZED ENLARGED LYMPH NODES Status: Acute - Plan Plan: 58 yo M with history of cirrhosis who presented with abd distention, cough, scrotal swelling who was admitted for hyponatremia. 1. Volume Overload * CHF vs. Cirrhosis * Scrotal swelling with anasarca and Left pleural effusion, will see if there is resolution with diuresis * BNP: 230 at [place], 354.9 this visit * He received 2 doses of Lasix 80 mg IV yesterday. Will do again today. * Creatinine: 1.2 > 1.19 > 1.10 * Restarted Spironolactone his home medication, but increased the dose. * Strict I&Os- -2635 (10/07) and -500 (10/08), Not too accurate due to difficulty with scrotal swelling. Daily weight checks. Weight down 5 kg. * ECHO: EF was 50-55% with thickened aortic leaflets, mild mitral regurg, and a dilated IVC. * Elevating scrotum today 2. Cirrhosis * Non-tender belly, not concerned for SBP * Adominal CT shows minimal fluid for draining/paracentesis * AAOx 3. Denies alcohol use. * Kidney function wnl. * Unknown etiology. Will need to follow up outpt with GI. * Hep B/C neg * ESR was normal at 63, CRP was elevated at 8.48, Iron was 106, TIBC was 268, and Ferritin was 610.80, Ammonia: 41, AST:40 > 36 > 43, Alk Phos trending down * ALEJANDRINA & Anti-Sm were both negative. * Ordered HFE gene studies to determine if he has hereditary hemochromatosis. * Consulted GI (10/07) Dr. Wiseman, appreciate recs. * Dr. Rojo agreed to see him outpatient. 3. Hyponatremia * Chronic: Na 128 > 129 > 129 > 127 > 127 * No AMS, Seizures, AAOx3 * Urine Osm: 370, Na: 51, likely related to cirrhosis * Will recheck CMP in am 4. Hyperbilirubenemia * Bili: 5.2 > 4.1 * Elevated Alk Phos: 169, AST: 39 on admission, Hep panel Negative, Direct Bili 2.7 * Slightly prolonged PT * RUQ: Negative for gallbladder disease. 5. Scrotal Swelling * Scrotal US negative for torsion * Suspect 2/2 CHF vs cirrhosis. 6. New left pleural effusion with cough and SOB * Suspected 2/2 CHF vs cirrhosis, although cannot rule out malignancy. * Saturating moderately well on room air. * Will order 80 IV lasix and consider diagnostic thoracentesis in the am. * Pulm consult (10/06) Dr. Moe, appreciate recs. Dr. Moe determined paracentesis is not needed at this time and f/u with him oupt in 3-4 wks 7. Pelvic lymphadenopathy * Suspect lymphoproliferative disorder. * Consulting radiology to see if they want to do a biopsy. * Do not suspect malignancy, Radiology thinks it is reactive inflammatory. Will monitor. 8. Obesity * Lipid Panel: TG-87, Chol- 115, LDL-77, HDL- 21 * Atorvastatin 40 mg started * A1C: 6.1% * HH diet Activity: As tolerated. PT/OT consulted Code status: Full code Diet: HH DVT Prophylaxis: SCDs Dispo: Holding for now to pull off fluid. Possible dispo in next couple of days. Addendum - Attending - Attending Attestation Date/Time: 10/09/181815 I personally evaluated the patient and discussed the management with Dr. Alicia I agree with the History, Examination, Assessment and Plan documented above with any addition or exceptions noted below. Patient needs continued diuresis and will need continued outpatient evaluation .
[2018-10-09] MEDS: Furosemide 100 MG/10 ML VIAL SLOW IVP SCH (06:14)
[2018-10-09 07:01] LABS: ALT (SGPT) 9 U/L (8-55); AST (SGOT) 43 U/L (5-34); Albumin 2.9 g/dL (3.5-5.0); Alkaline Phosphatase 156 U/L (40-150); Anion Gap 16 mmol/L (10-20); BUN (Urea Nitrogen) 24 mg/dL (8.4-25.7); Bilirubin, Total 4.1 mg/dL (0.2-1.2); Calc. Creatinine Clearance 152 mL/min (70-130); Calcium 9.4 mg/dL (7.8-10.44); Carbon Dioxide 27 mmol/L (22-29); Chloride 88 mmol/L (98-107); Estimated GFR-MDRD 69; Globulin 4.8 g/dL (2.4-3.5); Glucose 98 mg/dL (70-105); Protein, Total 7.7 g/dL (6.0-8.3); Sodium 127 mmol/L (136-145)
[2018-10-09] MEDS: Spironolactone 100 MG TAB PO SCH ×2 (08:07→20:52)
[2018-10-09] MEDS: Nystatin Powder 15 GM BOT TOP SCH ×2 (08:08→20:53)
[2018-10-09] MEDS ORDERED: Furosemide 100 MG/10 ML VIAL SLOW IVP SCH ×2 (11:30→18:00)
[2018-10-09] MEDS: Atorvastatin Calcium 40 MG TAB PO SCH (20:52)
[2018-10-09] MEDS ORDERED: hydrOXYzine 10 MG TAB PO SCH (21:30)
--- NOTE | 2018-10-10 05:09 | PDOC.FM ---
- Subjective Subjective: No complaints. Slept well with the aid of hydroxyzine. We discussed it was important for oupt f/u. He has no insurance though. BM yesterday. Eating well. - Objective MAR Reviewed: Yes Vital Signs & Weight: Vital Signs (12 hours) Temp Pulse Resp BP Pulse Ox 10/09/18 21:00 98.0 F 73 20 108/71 92 L 10/09/18 20:00 92 L Weight Weight 145.15 kg I&O: 10/08/18 10/09/18 10/10/18 06:59 06:59 06:59 Intake Total 990 1100 Output Total 3625 1600 Balance -2635 -500 Result Diagrams: 10/06/18 04:20 10/10/18 06:24 Phys Exam - Physical Examination Constitutional: NAD HEENT: PERRLA, sclera anicteric Neck: supple Lungs sounds clearer than before but still minimal breath sounds except RUL Cardiovascular: RRR, no significant murmur Gastrointestinal: soft, non-tender Musculoskeletal: edema present (much improved from admission) Neurological: non-focal, moves all 4 limbs Lymphatic: no nodes Psychiatric: normal affect, A&O x 3 Deviation from normal: Venous stasis ulcers Dx/Plan (1) Volume overload Code(s): E87.70 - FLUID OVERLOAD, UNSPECIFIED Status: Acute Qualifiers: Hypervolemia type: other Qualified Code(s): E87.79 - Other fluid overload (2) Hyperbilirubinemia Code(s): E80.6 - OTHER DISORDERS OF BILIRUBIN METABOLISM Status: Acute (3) Elevated brain natriuretic peptide (BNP) level Code(s): R79.89 - OTHER SPECIFIED ABNORMAL FINDINGS OF BLOOD CHEMISTRY Status : Acute (4) Pleural effusion, left Code(s): J90 - PLEURAL EFFUSION, NOT ELSEWHERE CLASSIFIED Status: Acute (5) Hyponatremia Code(s): E87.1 - HYPO-OSMOLALITY AND HYPONATREMIA Status: Acute (6) Scrotal swelling Code(s): N50.89 - OTHER SPECIFIED DISORDERS OF THE MALE GENITAL ORGANS Status : Acute (7) Cirrhosis Code(s): K74.60 - UNSPECIFIED CIRRHOSIS OF LIVER Status: Acute Qualifiers: Hepatic cirrhosis type: unspecified hepatic cirrhosis Ascites presence: with ascites Qualified Code(s): K74.60 - Unspecified cirrhosis of liver; R18.8 - Other ascites (8) Pelvic lymphadenopathy Code(s): R59.0 - LOCALIZED ENLARGED LYMPH NODES Status: Acute - Plan Plan: 58 yo M with history of cirrhosis who presented with abd distention, cough, scrotal swelling who was admitted for hyponatremia. 1. Volume Overload * CHF vs. Cirrhosis * Scrotal swelling with anasarca and Left pleural effusion, will see if there is resolution with diuresis * BNP: 230 at [place], 354.9 this visit * He received 2 doses of Lasix 80 mg IV yesterday. Will do again today. * Creatinine: 1.2 > 1.2 * Restarted Spironolactone his home medication, but increased the dose. * Strict I&Os- -2635 (10/07) and -500 (10/08) but not measure for yesterday, Not too accurate due to difficulty with scrotal swelling. Daily weight checks. Weight down almost 10 kg. * ECHO: EF was 50-55% with thickened aortic leaflets, mild mitral regurg, and a dilated IVC. * Elevating scrotum * HF Consult 2. Cirrhosis * Non-tender belly, not concerned for SBP * Adominal CT shows minimal fluid for draining/paracentesis * AAOx 3. Denies alcohol use. * Kidney function wnl. * Unknown etiology. Will need to follow up outpt with GI. * Hep B/C neg * ESR was normal at 63, CRP was elevated at 8.48, Iron was 106, TIBC was 268, and Ferritin was 610.80, Ammonia: 41, AST:40 > 36 > 43, Alk Phos trending down * ALEJANDRINA & Anti-Sm were both negative. * Ordered HFE gene studies to determine if he has hereditary hemochromatosis. * Consulted GI (10/07) Dr. Wiseman, appreciate recs. * Dr. Rojo agreed to see him outpatient. 3. Hyponatremia * Chronic: Na 128 > 129 * No AMS, Seizures, AAOx3 * Urine Osm: 370, Na: 51, likely related to cirrhosis * Will recheck CMP in am 4. Hyperbilirubenemia * Bili: 5.2 > 4.0 * Elevated Alk Phos: 171 > 161, AST: 38 > 38, Hep panel Negative, Direct Bili 2.7 * Slightly prolonged PT * RUQ: Negative for gallbladder disease. 5. Scrotal Swelling * Scrotal US negative for torsion * Suspect 2/2 CHF vs cirrhosis. 6. New left pleural effusion with cough and SOB * Suspected 2/2 CHF vs cirrhosis, although cannot rule out malignancy. * Saturating well on room air. * Pulm consult (10/06) Dr. Moe, appreciate recs. Dr. Moe determined paracentesis is not needed at this time and f/u with him oupt in 3-4 wks 7. Pelvic lymphadenopathy * Suspect lymphoproliferative disorder. * Consulting radiology to see if they want to do a biopsy. * Do not suspect malignancy, Radiology thinks it is reactive inflammatory. Will monitor. 8. Obesity * Lipid Panel: TG-87, Chol- 115, LDL-77, HDL- 21 * Atorvastatin 40 mg started * A1C: 6.1% * HH diet Activity: As tolerated. PT/OT consulted and signed off. Code status: Full code Diet: HH DVT Prophylaxis: SCDs Dispo: Discharge today or tomorrow. Addendum - Attending - Attending Attestation Date/Time: 10/10/18 1258 I personally evaluated the patient and discussed the management with Dr. Alicia I agree with the History, Examination, Assessment and Plan documented above with any addition or exceptions noted below. Patient counseled to strict fluid restriction and f/u with HF clinic, Dr Rojo for GI consideration and stressed importance of scrotal elevation to assist edema clearance from dependant regions. Patient should be able to be dismissed to outpatient staus today or tomorrow.
[2018-10-10] MEDS: Furosemide 100 MG/10 ML VIAL SLOW IVP SCH ×2 (06:59→14:11)
[2018-10-10 07:06] LABS: ALT (SGPT) 9 U/L (8-55); AST (SGOT) 38 U/L (5-34); Alkaline Phosphatase 161 U/L (40-150); Anion Gap 16 mmol/L (10-20); BUN (Urea Nitrogen) 24 mg/dL (8.4-25.7); Calc. Creatinine Clearance 138 mL/min (70-130); Calcium 9.5 mg/dL (7.8-10.44); Carbon Dioxide 32 mmol/L (22-29); Chloride 85 mmol/L (98-107); Estimated GFR-MDRD 62; Globulin 4.9 g/dL (2.4-3.5); Glucose 95 mg/dL (70-105); Potassium 3.8 mmol/L (3.5-5.1); Protein, Total 7.9 g/dL (6.0-8.3); Sodium 129 mmol/L (136-145)
[2018-10-10] MEDS: Nystatin Powder 15 GM BOT TOP SCH ×2 (08:08→21:14)
[2018-10-10] MEDS: Spironolactone 100 MG TAB PO SCH ×2 (08:08→21:12)
[2018-10-10] MEDS: Atorvastatin Calcium 40 MG TAB PO SCH (21:12)
[2018-10-10] MEDS ORDERED: hydrOXYzine 10 MG TAB PO SCH (21:30)
--- NOTE | 2018-10-11 05:27 | PDOC.FM ---
- Subjective Subjective: No acute events overnight. Patient doing well. Reports that he has noticed marked improvement of his swelling, with abdominal swelling almost to baseline and scrotal swelling 70% improved. He states that the hydroxyzine last night helped him improve his sleep. He is eager to go home. Although he has no insurance he says he talked with Dr. Moe who would help him with a payment scale. He plans to make an appointment with him in 3-4 weeks for follow up. He plans to get a PCP at [facility] and to contact Dr. Rojo for further workup of his cirrhosis. - Objective MAR Reviewed: Yes Vital Signs & Weight: Vital Signs (12 hours) Temp Pulse Resp BP Pulse Ox 10/10/18 20:00 97.8 F 66 18 112/73 92 L 10/10/18 19:43 92 L Weight Weight 143.845 kg I&O: 10/09/18 10/10/18 10/11/18 06:59 06:59 06:59 Intake Total 1100 1500 Output Total 1600 Balance -500 1500 Result Diagrams: 10/06/18 04:20 10/10/18 06:24 Radiology Reviewed by me: Yes Phys Exam - Physical Examination HEENT: moist MMs Respiratory: no wheezing, no rales, no rhonchi minimal breath sounds throughout, improved on RUL Cardiovascular: RRR, no significant murmur Gastrointestinal: soft, non-tender, positive bowel sounds Musculoskeletal: edema present (scrotal edema present, but patient says much improved from admission) Neurological: non-focal Skin: no rash Dx/Plan (1) Cirrhosis Code(s): K74.60 - UNSPECIFIED CIRRHOSIS OF LIVER Status: Acute Qualifiers: Hepatic cirrhosis type: unspecified hepatic cirrhosis Ascites presence: with ascites Qualified Code(s): K74.60 - Unspecified cirrhosis of liver; R18.8 - Other ascites (2) Elevated brain natriuretic peptide (BNP) level Code(s): R79.89 - OTHER SPECIFIED ABNORMAL FINDINGS OF BLOOD CHEMISTRY Status : Acute (3) Hyperbilirubinemia Code(s): E80.6 - OTHER DISORDERS OF BILIRUBIN METABOLISM Status: Acute (4) Hyponatremia Code(s): E87.1 - HYPO-OSMOLALITY AND HYPONATREMIA Status: Acute (5) Pelvic lymphadenopathy Code(s): R59.0 - LOCALIZED ENLARGED LYMPH NODES Status: Acute (6) Pleural effusion, left Code(s): J90 - PLEURAL EFFUSION, NOT ELSEWHERE CLASSIFIED Status: Acute (7) Scrotal swelling Code(s): N50.89 - OTHER SPECIFIED DISORDERS OF THE MALE GENITAL ORGANS Status : Acute (8) Volume overload Code(s): E87.70 - FLUID OVERLOAD, UNSPECIFIED Status: Acute Qualifiers: Hypervolemia type: other Qualified Code(s): E87.79 - Other fluid overload - Plan Plan: 58 yo M with history of cirrhosis who presented with abd distention, cough, scrotal swelling who was admitted for volume overload and hyponatremia. #Volume Overload * CHF vs. Cirrhosis * Scrotal swelling with anasarca and Left pleural effusion, will see if there is resolution with diuresis * Has been receiving 80mg IV Lasix BID-> switch to 80mg PO Lasix this afternoon * BNP: 230 at [place], 354.9 this visit * Creatinine: 1.2 > 1.2 * Restarted Spironolactone (home medication) yesterday, but increased the dose to BID * Potassium 3.8 this am * Strict I&Os- Daily weight checks. Weight down approx 9kg from 10/06-10/10 * ECHO: EF was 50-55% with thickened aortic leaflets, mild mitral regurg, and a dilated IVC. * Elevating scrotum * HF Consult, appreciate recs * Consider repeat echo in 5-6 weeks # Cirrhosis * Non-tender belly, not concerned for SBP * Adominal CT shows minimal fluid for draining/paracentesis * AAOx 3. Denies alcohol use. * Kidney function wnl. Creatinine 1.2, down from 1.28 on admission * Unknown etiology s/p work up in [place]. Will need to follow up outpt with GI , Dr. Rojo agreed * Hep B/C neg, HIV neg * ESR was normal at 63, CRP was elevated at 8.48, Iron was 106, TIBC was 268, and Ferritin was elevated 610.80, Ammonia: 41, AST:40 > 36 > 43, Alk Phos trending down * ALEJANDRINA & Anti-Sm were both negative. * Ordered HFE gene studies to determine if he has hereditary hemochromatosis, will follow up * Consulted GI (10/07) Dr. Wiseman, recommended low sodium diet, IV lasix, and considering IV albumin # Hyponatremia * Chronic: Na 128 > 129 * No AMS, Seizures, AAOx3 * Urine Osm: 370, Na: 51, likely related to cirrhosis #Hyperbilirubenemia * Bili: 5.2 > 4.0 * Elevated Alk Phos: 171 > 161, AST: 38 > 38, Hep panel Negative, Direct Bili 2.7 * Slightly prolonged PT * RUQ: Negative for gallbladder disease. # Scrotal Swelling * Scrotal US negative for torsion * Suspect 2/2 fluid overload CHF vs cirrhosis. * Much improved from admission #New left pleural effusion with cough and SOB * Suspected 2/2 CHF vs cirrhosis, although cannot rule out malignancy. * Saturating well on room air. * Pulm consult (10/06) Dr. Moe, determined paracentesis is not needed at this time and f/u with him oupt in 3-4 wks with CXR #Pelvic lymphadenopathy * Suspect lymphoproliferative disorder. * Radiation consulted for possible biopsy, malignancy not suspected * likely reactive inflammatory. Will monitor. #Obesity * Lipid Panel: TG-87, Chol- 115, LDL-77, HDL- 21 * Atorvastatin 40 mg started * A1C: 6.1% * HH diet Activity: As tolerated. PT/OT consulted and signed off. Code status: Full code Diet: HH DVT Prophylaxis: SCDs Dispo: Possible discharge today if tolerates PO Lasix well Addendum - Attending - Attending Attestation Date/Time: 10/11/18 5282 I personally evaluated the patient and discussed the management with Dr. Flood. I agree with the History, Examination, Assessment and Plan documented above with any addition or exceptions noted below. Will transition to po lasix. Continue spironolactone. If pt is doing well this afternoon he could go home.
[2018-10-11] MEDS: Furosemide 100 MG/10 ML VIAL SLOW IVP SCH (05:59)
[2018-10-11] MEDS: Nystatin Powder 15 GM BOT TOP SCH (08:50)
[2018-10-11] MEDS: Spironolactone 100 MG TAB PO SCH (08:50)
[2018-10-11] MEDS ORDERED: Furosemide 80 MG TAB PO SCH ×2 (09:00→14:00)
[2018-10-11 16:58] VITALS: BP 99/65; TEMP 97.6
--- NOTE | 2018-10-12 02:59 | DIS ---
DATE OF ADMISSION: 10/06/2018 DATE OF DISCHARGE: 10/11/2018 ADMITTING RESIDENTS: 1. Stone Alicia MD. 2. Mesha Maravilla MD ADMITTING ATTENDING: Kevin Guerra MD. DISCHARGE RESIDENTS: 1. Nedra Flood MD. 2. Mesha Maravilla MD DISCHARGE ATTENDING: Kelsy Murillo MD. CONSULTS: Case Management, Dr. Wiseman from GI, Dr. Moe from Pulmonology, HF Clinic, OT evaluation, Radiology. PROCEDURES: None. IMAGING: On 10/05, abdominal ultrasound: 1. No evidence of gallstones or biliary obstruction. 2. Small amount of free fluid in right upper quadrant. On 10/05, abdomen/pelvis CT: 1. Moderate pulmonary edema and moderate layering left pleural effusion. 2. Small volume ascites, not likely enough for paracentesis. 3. Extensive pelvic adenopathy. Outpatient workup for extensive lymphoproliferative disorder is recommended. 4. Hepatic cirrhosis and mild splenomegaly. 5. Mild diverticular disease in sigmoid colon without active current inflammation. On 10/05, testicular ultrasound: No evidence of testicular mass or torsion. Prominent diffuse scrotal thickening. Very small right hydrocele. On 10/06, echo: Ejection fraction visually estimated at 50% to 55%. Left ventricle not well visualized. Aortic valve leaflets are thickened and not well visualized. Mild tricuspid regurgitation. Dilation of IVC. PRIMARY DIAGNOSES: Elevated BNP and volume overload, new left pleural effusion, pelvic lymphadenopathy, scrotal swelling, hyponatremia, hyperbilirubinemia. SECONDARY DIAGNOSES: Cirrhosis DISCHARGE MEDICATIONS: 1. Furosemide 80 mg p.o. b.i.d. 2. Spironolactone 100 mg p.o. b.i.d. 3. Potassium 99 mg tablet p.o. daily. 4. Milk thistle 150 mg p.o. daily. 5. Fish oil 1000 mg p.o. daily. 6. Calcium carbonate 500 mg tablet q.4 p.r.n. 7. Atorvastatin 40 mg p.o. at bedtime. 8. CoQ10 100 mg p.o. daily. DISCONTINUED MEDICATIONS: 1. Hydroxyzine HCL 10 mg p.o. 2. Nystatin p.o. b.i.d. 3. Normal saline. HISTORY OF PRESENT ILLNESS/HOSPITAL COURSE: The patient presented with scrotal swelling, abdominal distension, and coughing , was recently seen in [place] 1 week before with the same symptoms, where he had a BNP of 230. They gave him 120 mg Lasix IV and changed Lasix to 80 mg b.i.d. Upon admission to [place], he had pulmonary edema and scrotal swelling with a BNP of 354.9, bilirubin of 5.2, alk phos of 159, and a sodium of 128. Urine osmolality was 370 with urine sodium 51. Hyponatremia was determined to be likely due to cirrhosis. He was started on 80 mg Lasix IV b.i.d. and home medication spironolactone, which was later doubled to BID. He had strict monitoring of his I' and O's. Hep B and C, and HIV returned negative. ALEJANDRINA and anti-Sm were both negative. CRP was elevated at 8.48. A1c is 6.1%. Atorvastatin 40 mg daily started. HFE gene studies ordered to rule out hemochromatosis. Radiology was consulted for possible biopsy of pelvic lymphadenopathy, but reported that malignancy was unlikely and more likely to be an inflammatory response. Bilirubin 4.0 on 10/10. On 10/11, the patient was transitioned over to p.o. Lasix, which he tolerated well and continuedto void. The patient was down almost 10 kg by date of discharge. He was in stable condition. Had O2 saturation decreased at first per nursing to 89% while he was talking, but after he took a few good breaths and coughed, his O2 saturation recovered to 93%. He was discharged without any respiratory distress and his respirations were even and unlabored. He was discharged with contact information for Dr. Rojo, Dr. Moe, [facility], and [facility]. DISPOSITION: Stable. DISCHARGE INSTRUCTIONS: 1. Location: Home. 2. Diet: Heart healthy diet. 3. Activity: As tolerated. 4. Follow up with Dr. Moe as outpatient in 3 to 4 weeks, Dr. Rojo in 2 to 3 weeks, and primary care within the next week. Job ID: [id number] [facility]
== END 2018-10-11 18:36 | disposition home or self-care (01) | DRG 433 ==
LOC: ERS 12:41 → 2SW 18:35 → OBSVTOIN 10-06 13:42 → T4-B 10-07 15:22
PROVIDERS: ADMIT Family Medicine; ATTEND Family Medicine
DX: K74.60 Unspecified cirrhosis of liver (principal); J90 Pleural effusion, not elsewhere classified; R18.8 Other ascites; Z68.41 Body mass index [BMI] 40.0-44.9, adult; I42.9 Cardiomyopathy, unspecified; E87.1 Hypo-osmolality and hyponatremia; E87.70 Fluid overload, unspecified; F12.10 Cannabis abuse, uncomplicated; E83.119 Hemochromatosis, unspecified; R59.1 Generalized enlarged lymph nodes; E66.9 Obesity, unspecified; Z87.891 Personal history of nicotine dependence
CPT/HCPCS: 36415; 74177; 76705; 76870; 80053; 80061; 81003; 81256; 82140; 82248; 82728; 83036; 83516; 83540; 83550; 83605; 83690; 83880; 83930; 83935; 84300; 85025; 85610; 85652; 85730; 86038; 86140; 86225; 86780; 86803; 87340; 87389; 90471; 90732; 93005; 93010; 93306; 93976; 99284; G0009; J1940; Q9966

== ENCOUNTER 2018-12-06 10:42 | Outpatient (CLI) | payer OTHER, SELFPAY ==
--- NOTE | 2018-12-06 13:31 | RAD ---
PA AND LATERAL CHEST: HISTORY: Dyspnea. COMPARISON: A 09/29/2018 study. FINDINGS: Heart size is enlarged. Pulmonary vessels appear engorged. There are increased parahilar lung cookie ngs and also pleural changes in the left base. The parahilar markings are slightly more prominent, p articularly in the right parahilar region as compared to the prior exam. There are apical pleural anna ng change. There is also blunting to the right costophrenic angle. These changes are fairly similar to the prior study. IMPRESSION: Cardiomegaly with chronic lung changes with what appears to be superimposed pulmonary edema. The jesse nges are fairly similar to the previous 09/29/2018 study with the exception that some of the right per ihilar lung changes appear slightly more prominent. I am not certain what component of this is purel y chronic change. A short-term followup chest x-ray may be helpful in assessment. POS: OFF
== END 2018-12-06 10:43 | disposition home or self-care (01) ==
LOC: RAD 10:42
PROVIDERS: ATTEND Internal Medicine Critical Care Medicine
DX: R06.00 Dyspnea, unspecified (principal); I51.7 Cardiomegaly
CPT/HCPCS: 71046

== ENCOUNTER 2018-12-06 12:51 | Inpatient (IN) | payer OTHER ==
[2018-12-06] MEDS ORDERED: Furosemide 100 MG/10 ML VIAL SLOW IVP SCH (13:30)
[2018-12-06 13:58] LABS: #Basophils 0.1 thou/uL (0.0-0.2); #Eosinphils 0.1 thou/uL (0.0-0.7); #Lymphocytes 0.8 thou/uL (1.20-3.40); #Monocytes 0.7 thou/uL (0.11-0.59); #Neutrophils 6.8 thou/uL (1.40-6.50); %Basophils 0.9 % (0.0-1.0); %Eosinophils 0.9 % (0.0-10.0); %Lymphocytes 9.4 % (21.0-51.0); %Monocytes 8.5 % (0.0-10.0); %Neutrophils 80.3 % (42.0-75.0); Hemoglobin 16.1 g/dL (14.0-18.0); Mean Corpuscular HGB CONC 33.4 g/dL (32.0-36.0); Mean Corpuscular Hemoglobin 26.8 pg (27.0-31.0); Mean Corpuscular Volume 80.3 fL (78.0-98.0); Mean Platelet Volume 9.6 fL (7.4-10.4); Platelet Count 172 thou/uL (130-400); RBC Distribution Width 17.6 % (11.5-14.5); Red Blood Cell (RBC) Count 6.01 mill/uL (4.70-6.10); White Blood Cell (WBC) Count 8.5 thou/uL (4.8-10.8)
[2018-12-06 14:04] LABS: INR-International Normal Ratio 1.5; Prothrombin Time 18.1 SEC (12.0-14.7)
[2018-12-06 14:20] LABS: ALT (SGPT) 7 U/L (8-55); AST (SGOT) 32 U/L (5-34); Albumin 2.8 g/dL (3.5-5.0); Alkaline Phosphatase 110 U/L (40-150); Anion Gap 17 mmol/L (10-20); BUN (Urea Nitrogen) 58 mg/dL (8.4-25.7); Bilirubin, Direct 5.3 mg/dL (0.1-0.3); Bilirubin, Total 8.1 mg/dL (0.2-1.2); Calc. Creatinine Clearance 0 mL/min (70-130); Calcium 9.3 mg/dL (7.8-10.44); Carbon Dioxide 22 mmol/L (22-29); Chloride 91 mmol/L (98-107); Estimated GFR-MDRD 25; Glucose 76 mg/dL (70-105); Potassium 4.9 mmol/L (3.5-5.1); Protein, Total 7.5 g/dL (6.0-8.3); Sodium 125 mmol/L (136-145)
[2018-12-06] MEDS ORDERED: Adenosine 6 MG/2 ML VIAL ONE (15:00)
[2018-12-06] MEDS ORDERED: EPINEPHrine 1 MG/10 ML Abboject SYRINGE ONE (15:00)
[2018-12-06] MEDS ORDERED: Lidocaine 2% Jelly 5 ML TUBE ONE (15:00)
[2018-12-06] MEDS ORDERED: Sodium Bicarb 50 MEQ/50 ML Abboject 8.4% SYRINGE ONE (15:00)
[2018-12-06] MEDS ORDERED: Spironolactone 100 MG TAB PO SCH (17:00)
--- NOTE | 2018-12-06 17:34 | HP ---
DATE: 12/06/2018 HISTORY OF PRESENT ILLNESS: Mr. Good is a pleasant gentleman with biopsy-proven cirrhosis, currently being followed by Dr. Rojo. He presented to my office today with complaints of shortness of breath. He was noted to be hypoxemic in the office and was dusky. Chest radiograph compared to old films showed an increase in pulmonary edema. An echocardiogram last admission in September that showed normal left ventricular systolic function. When I asked him he thought he needed to be in the hospital, he said "I would argue with you." His mother quickly told me that she thought he needed to be in. He has been eating a lot of ice, probably the equivalent of about 3 quarts of ice. We dealt with this last admission when he was reportedly more watermelon because of hot it is. He has been on Lasix 80 twice a day and spironolactone 100 twice a day. He has lifelong history of obesity. I believe he has ever had a sleep study. FAMILY HISTORY: Positive for diabetes and vascular disease. SOCIAL HISTORY: He was a heavy smoker, but quit several years ago. PHYSICAL EXAMINATION: VITAL SIGNS: In the office, heart rate was in the 70s, respiratory rate was in the low 20s, and oximetry is 85% on room air. GENERAL: He is dusky appearing. HEENT: Pupils are equal. His bulbar conjunctiva was injected. NECK: Supple. No lymphadenopathy. LUNGS: Remarkable for distant crackles at both lung bases. HEART: Regular rhythm. S1 and S2 are normal. ABDOMEN: Soft. EXTREMITIES: With stasis changes. LABORATORY DATA: White count is 8.5, hemoglobin 16.1, platelets 172. Sodium 125, potassium 4.9, chloride 91, bicarb 22, BUN 58, creatinine 2.64. Bilirubin is 5.3 today direct and 8.1 total. AST is 32, ALT 7, albumin is 2.8, and protime is 18.1. IMPRESSION: 1. Volume overload with anasarca and pulmonary edema. 2. ? untreated sleep apnea. 3. Hyperbilirubinemia and mild coagulopathy. His echocardiogram showed normal systolic function, but his right ventricle was not visualized last admission. I will ask Gastroenterology to look in on him while he is here. Try to diurese him, although we will need to watch his lab closely. Job ID: [id number] [facility]
[2018-12-06 17:44] LABS: Actual Bicarbonate (HCO3a) 21.1 mEq/L (22-28); Base Excess (BEa) -2.4 mEq/L (-2.0 to +3.0); CO2 Tension 33.2 mmHg (35.0-45.0); Calcium, Ionized 1.13 mmol/L (1.12-1.30); Hemoglobin (Hb) 15.9 g/dL (14.0-18.0); Potassium - ABG Lab 4.76 mmol/L (3.70-5.30); pH, Arterial 7.42 (7.35-7.45)
[2018-12-06 17:52] VITALS: BP 183/158
[2018-12-06 17:54] LABS: O2 Tension (PaO2) 43.8 mmHg (80.0-100.0); Puncture Site LRA
[2018-12-06 17:58] VITALS: BMI 43.7
--- NOTE | 2018-12-06 18:23 | RAD ---
EXAM: Single view of the chest HISTORY: Hypoxemia COMPARISON: 12/06/2018 at 10:53 AM FINDINGS: Single view of the chest shows an enlarged cardiomediastinal silhouette. Increased interst itial markings are present. There appears to be a small left pleural effusion. The bones are unremarkable. IMPRESSION: Findings may be secondary to congestive heart failure with pulmonary edema and left pleur al effusion.
[2018-12-06] MEDS ORDERED: Albumin 25% 25 GM/100 ML BOT IVPB SCH ×2 (18:30→21:30)
[2018-12-06] MEDS ORDERED: Albumin 25% 25 GM/100 ML BOT IVPB PRN (18:38)
--- NOTE | 2018-12-06 18:51 | PRG ---
DATE OF SERVICE: 12/06/2018 SUBJECTIVE: Geovanni Good is a 58-year-old morbidly obese gentleman, who was transferred from the medical floor to the ICU after he became less responsive, hypoxic with labored respiration. A blood gas was done, which showed a pO2 of 43, pCO2 30% on 4 L nasal O2 Stat chest x-ray showed unchanged bilateral interstitial infiltrates with a small left pleural effusion. He was verbalizing and is appeared appropriate. He was recently admitted to the hospital by Dr. Moe from the office after he presented with severe hypoxemia, respiratory failure. OBJECTIVE: VITAL SIGNS: His oxygen saturation was 83% to 84% on a Ventimask. Switching to BiPAP it is 93% to 94%, temperature 98, pulse 92, blood pressure 100/80. CHEST: Bilateral crackles. CARDIAC: Normal S1, S2. No gallops. ABDOMEN: Massive chronic stasis edema. LABORATORY DATA: His creatinine is increased to 2.64, sodiun 124. IMPRESSION: 1. [id number] respiratory failure secondary to fluid overload. 2. Morbid obesity, probably sleep apnea. PLAN: Continue BiPAP. Continue diuretics as ordered by Cardiology. Neb treatment supportive care. If condition gets worse he may require intubation, vent support. This is one-half hour of critical time. Job ID: [id number] [facility]
[2018-12-06] MEDS: Albumin 25% 25 GM/100 ML BOT IVPB SCH (19:45)
[2018-12-06] MEDS: DOPamine 400 MG/D5W 250 ML 250 ML IVPB PRN (21:46)
[2018-12-06] MEDS ORDERED: Sodium Chloride 0.9% 500 ML IVPB SCH (23:59)
[2018-12-07] MEDS: Albumin 25% 25 GM/100 ML BOT IVPB SCH (01:21)
[2018-12-07 01:43] VITALS: TEMP 98.5
--- NOTE | 2018-12-07 01:50 | CON ---
DATE OF CONSULTATION: 12/06/2018 REASON FOR CONSULTATION: Anasarca, admitted from Dr. Moe's office with increasing shortness of breath and hypoxemia. HISTORY OF PRESENT ILLNESS: Mr. Good is a 58-year-old who is seen in the office twice. He had been in the hospital initially in September, was seen by Dr. Wiseman at that time for anasarca and scrotal edema. He reported a prior history of cirrhosis diagnosed at [facility] in [place], [place], which was about 2 years ago. The etiology was unclear. The patient drinks alcohol occasionally, but never heavily by his report. No prior history of liver disease or hepatitis. He has been hospitalized in [place] with previous issues of scrotal swelling, abdominal bloating, and leg swelling, would improve with Lasix and low-sodium diet. He is unclear about a diagnosis of heart disease. Over the past 4 years, he has had decreased activity secondary to shortness of breath. Reportedly, he has had a colonoscopy about 2 years prior, was incomplete exam. When I saw him in dialysis, he was on 100 mg of Aldactone b.i.d. and Lasix 40 mg b.i.d., his weight was 303 pounds that went up to 350 pounds and we decreased his Lasix to 40 b.i.d., this we increased back up while I saw back in the office. Two weeks later, he was down to 336. His mother is with him today and he has had some confusion. He denies any fever or chills. Denies any nausea, vomiting, hematemesis, melena, or hematochezia. PAST MEDICAL HISTORY: Liver cirrhosis diagnosed in [place], details unknown; several years of ascites, scrotal edema, and peripheral edema. FAMILY HISTORY: Mother with some dementia. SOCIAL HISTORY: Moved from [facility], to be closer to his mother just a few months prior. PAST SURGICAL HISTORY: None. REVIEW OF SYSTEMS: NEUROLOGIC: No history of passing out, seizures, or stroke. RESPIRATORY: Dyspnea on exertion. No cough. No hemoptysis. No fever. CARDIOVASCULAR: No chest pain, angina, palpitations. Positive for orthopnea. Positive for exertional dyspnea. GASTROINTESTINAL: Per HPI. GENITOURINARY: Negative for dysuria, frequency, or urgency. MUSCULOSKELETAL: Unremarkable. ENDOCRINE: Unremarkable. HEENT: Unremarkable. MEDICATIONS: At home, milk thistle, fish oil, CoQ10, Lasix 80 b.i.d., aldactone 100 mg b.i.d. Medications at present albumin 25 mg IV q.6, albuterol, dopamine, sodium chloride, Aldactone 100 b.i.d., received Lasix IV push 1300. PHYSICAL EXAMINATION: VITAL SIGNS: Heart rate 90, blood pressure 60s over 30s, respiratory rate 30, O2 saturation 88% to 87% on room air, 96% on 2 L. GENERAL: He appears lopez and ashen, was just getting here and getting into bed. He has just come up from downstairs. He is mildly icteric. LUNGS: Clear with decreased breath sounds in the right and left bases, more so on the left. HEART: Has regular rate and rhythm. Has mild JVD. He has gross anasarca with edema of his abdominal wall, legs, trunk with brawny edema and discoloration of the legs. Pulses are not palpable in the feet. He has scrotal edema. No asterixis. NEUROLOGIC: He is alert and oriented to person, place, and time. LABORATORY DATA: White count 8.5, hemoglobin 16, platelet count 172. INR 1.5. Sodium 125, it was 127 in September; potassium 4.9. BUN and creatinine are 58 and 2.64, up from 1.78 and 32 in my office on 11/15. Bilirubin is 8, up from 4, direct 5.3. AST and ALT 32 and 7, alkaline phosphatase 110, albumin is 2.8, total protein 7.5. Previous iron was 106, ferritin was 610, ammonia last admission was 48, CRP 8.4 on September. BNP 359 in September. Triglycerides were 87, total cholesterol was 115. Lipase was 7, down from Chana. Immunology was negative. Smooth muscle antibody, ALEJANDRINA, HIV were negative. Syphilis was nonreactive. 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 IMAGING DATA: Chest x-ray on admission, cardiomegaly, chronic lung changes, pulmonary edema, similar to 09/29 exam, more prominent perihilar lung changes. ASSESSMENT: Hypertension, anasarca, history of cirrhosis with fairly preserved hepatic function. No evidence of encephalopathy on prior admissions and no evidence of coagulation abnormalities. Fairly trend albumin 2.8 to 3, total protein is 7.5, out of proportion for the amount of edema he has for the diagnosis of cirrhosis. No evidence of overt underlying disease by laboratory studies. Imaging in September showed pulmonary effusion, pulmonary edema, enlarged bilateral vascular lymph nodes, CT showed bilateral large lymph nodes up to 2 cm, cirrhotic appearing liver. Ultrasound showed no evidence of biliary obstruction with a small amount of fluid. CAT scan in September showed anasarca, minimal free ascites. I have reviewed those films. I suspect that the patient has more than the cirrhosis causing this. He has a large globulin gap, lymphoproliferative disorder is considered, he can have a component of right-sided heart failure. RECOMMENDATIONS: Albumin and Lasix for diuresis. The patient may need respiratory support with BiPAP or intubation. Ultimately, the patient remains hypotensive despite abdomen infusion. Would start antibiotics, panculture, check ammonia. Consider midodrine for pressor support and empiric antibiotics for possible SBP. We will follow along with you. Job ID: [id number] MTDD
[2018-12-07] MEDS: DOPamine 400 MG/D5W 250 ML 250 ML IVPB PRN (03:00)
[2018-12-07] MEDS ORDERED: EPINEPHrine 1 MG/10 ML Abboject SYRINGE ONE ×2 (04:51→04:52)
[2018-12-07] MEDS ORDERED: Norepinephrine 4 MG/4 ML VIAL ONE (04:53)
--- NOTE | 2018-12-07 06:18 | PRG ---
DATE OF SERVICE: 12/07/2018 SUBJECTIVE: He was admitted to the hospital with respiratory failure, hypoxemia, who was transferred to the ICU shortly thereafter and placed on noninvasive ventilation about 6 o' clock in the evening. He was hypotensive and required albumin infusion. Eventually, dopamine was started. His blood pressure systolic remained in the 80s. His heart rate was in the 80s. His oxygen saturations were in the 90s. At about 4:30 in the morning on 12/07, while they were trying to adjust his neck position, he became bradycardic and proceeded to have a cardiopulmonary arrest. CPR was initiated by that time and continued until 5:35 a.m. when he was pronounced . He was intubated by the resident on-call, he received multiple amps of epinephrine, bicarb, Levophed and dopamine, and IV fluids were initiated. We were unable to get his adequate blood pressure. He was in a pulseless electrical activity. Very briefly, we got a small pulse, but once again no blood pressure was obtained. Prolonged CPR. Eventually, he had a run of ventricular tachycardia with shocks several times. Once again, no palpable pulse. CPR was terminated at 5:35. Mother had just arrived from [place]. His cause of demise: 1. Cardiopulmonary arrest, multifactorial. 2. Cirrhosis. 3. Renal failure. 4. Persistent hypotension. 5. Massive abdominal adenopathy, etiology unclear. Body will be released to the home. I will notify admitting physician. Job ID: [id number]
[2018-12-07] MEDS ORDERED: Furosemide 100 MG/10 ML VIAL SLOW IVP SCH (08:00)
--- NOTE | 2018-12-07 08:13 | OP ---
DATE OF PROCEDURE: 12/07/2018 CODE INTUBATION NOTE At 04:24, Code Roger was called on the patient for needing to be intubated, not maintaining O2 sats. When we arrived at the scene, the patient no longer had a pulse. At this time, we started CPR, started bagging him, started giving him epinephrine. At this point, doing pulse check, the patient was intubated with a GlideScope. There was good visualization. No sedation or paralytics were needed as the patient was unconscious. We continued the Code for over an hour until 5: 35. We gave 11 rounds of epinephrine. We gave 3 rounds of bicarb. We shocked with 200 joules. At one point during ventricular tachycardia, we had 3 pauses throughout each code, where we did obtain a pulse only through Doppler. We never could palpate a pulse, but slowly his pulse would fade away and we would resume codes with CPR and epinephrine. It was noted the patient had some coffee-grounds emesis and around 5:35 time of was called. Job ID: [id number] MTDD
--- NOTE | 2018-12-07 08:52 | RAD ---
PORTABLE SUPINE CHEST: INDICATIONS: Cardiac arrest. Code blue. COMPARISON: 12/06/2018 FINDINGS: Cardiomegaly. Diffuse bilateral interstitial and alveolar edema pattern with bilateral infiltrates, more prominent than on the prior study. ET tube has tip just above the july. Left basilar opacification suggests dense consolidation and atelectasis with probable effusion. POS: OFF
--- NOTE | 2018-12-08 14:27 | DIS ---
DATE OF ADMISSION: 12/06/2018 DATE OF DISCHARGE: 12/07/2018 FINAL SUMMARY: DIAGNOSES: 1. Status post cardiac arrest. 2. Cirrhosis, advanced. 3. Hyperbilirubinemia and coagulopathy secondary to cirrhosis. 4. Probable pulmonary hypertension related to untreated sleep apnea. 5. History of normal left ventricular systolic function. 6. Morbid obesity. HOSPITAL COURSE: Mr. Good presented to the office for routine followup from recent hospitalization to document clearing of his chest radiograph. He still had radiographic findings consistent with pulmonary edema plus he had an ashen color and was jaundiced. He agreed to be admitted to the hospital. He was given 1 dose of IV diuretics and dropped his blood pressure, so he was transferred to critical care unit. He was empirically placed on BiPAP, but was able to converse, was in no distress and had no acid-base disorder on blood gas. Apparently, early in the morning, when he was being repositioned, he lost his pulse, became extremely hypoxic. A very aggressive code was unsuccessful. He was pronounced at I believe 0535 hours in the morning. Body was released to the home. Job ID: [id number]
--- NOTE | 2018-12-08 22:47 | PQF ---
[employer] Agent [employer] Winform Viewer JUDIT RAMIREZ THOMAS MD [id number] CLINICAL DOCUMENTATION CLARIFICATION FORM: POST DISCHARGE Addendum to original discharge summary date: ____ Late entry note date: __ DATE: 12/08/18 ATTN: Joseph Leach Please exercise your independent, professional judgment in responding to the clarification form. Clinical indicators are provided on the bottom of this form for your review Can you please further specify the clinical significance below? Please check appropriate box(s): [ ] Acute Renal Failure (ARF) / Acute Kidney Injury (DAI) [ ] Acute Tubular Necrosis (ATN) [ ] Acute on Chronic Renal Failure please specify Stage of CKD (see below) [ ] CKD without ARF/DAI please specify Stage of CKD [ ] Other diagnosis please specify [ ] Unable to determine In addition, please specify: Present on Admission (POA): [ ] Yes [ ] No [ ] Unable to determine National Kidney Foundation Guidelines for CKD Staging Stage I Kidney damage with normal or increased GFRGFR > 90 Stage IIKidney damage with mildly decreased GFRGFR 60-89 Stage III Kidney damage with moderately decreased GFRGFR 30-59 Stage IVKidney damage with severely decreased GFRGFR 16-29 Stage VKidney failureGFR<15 ESRDEnd Stage Renal DiseaseOn dialysis Acute Renal Failure/Acute Kidney Failure defined as: Increases in SCr by (>) 0.3 mg/dl within 48 hours OR- Increases in SCr by (>) 1.5 times baseline, known or presumed to have occurred within the prior 7 days OR- Urine volume < 0.5 ml/kg/hour for 6 hours (KDIGO supplement 2012 for RIFLE/LUDMILA criteria) For continuity of documentation, please document condition throughout progress notes and discharge summary. Thank You. CLINICAL INDICATORS - SIGNS / SYMPTOMS / LABS Laboratory 12/06 - "BUN 58H, Creatinine 2.64H, Estimated GFR 25" H&P p2 12/06 Dr. Moe- volume overload with anasarca and pulmonary edema PN 12/07 Dr. Singh pg.1 " Renal Failure" DS p1 12/08 Dr. Moe-pulmonary hypertension PN p1 12/07 Dr. Singh- Cardiopulmonary arrest, multifactorial RISK FACTORS Morbid obesity- PN12/[address] Singh Hypertension- Consult 12/06 Dr. Rojo pg.2 Has been on Lasix 80 twice a day and a spironolactone 100 twice a day-H&P 12/06 Dr. Moe TREATMENTS: IV Fluids- MAR 12/06 (This form is maintained as a part of the permanent medical record) 2014 [employer], [employer] [place]. All Rights Reserved Jose E [email or web address] [not provided] MTDD
--- NOTE | 2018-12-08 23:05 | PQF ---
[employer] L[employer] Coater Crystal Reports Winform Viewer JUDIT RAMIREZ THOMAS MD [id number] CLINICAL DOCUMENTATION CLARIFICATION FORM: POST DISCHARGE Addendum to original discharge summary date: ____ Late entry note date: __ DATE: 12/08/18 ATTN:Dr. Abhi Ruiz Please exercise your independent, professional judgment in responding to the clarification form. Clinical indicators are provided on the bottom of this form for your review Can you please further specify patient diagnosis below? Please check appropriate box(s): HEART FAILURE: A. TYPE: [ ] Systolic / HFrEF [ ] Diastolic / HFpEF [ ] Combined Systolic / Diastolic B. ACUITY [ ] Acute [ ] Acute on Chronic [ ] Chronic [ ] Other diagnosis please specify [ ] Unable to determine In addition, please specify: Present on Admission (POA): [ ] Yes [ ] No [ ] Unable to determine For continuity of documentation, please document condition throughout progress notes and discharge summary. Thank You. CLINICAL INDICATORS - SIGNS / SYMPTOMS / LABS H and P 12/06 pg.1- "Chest radiograph to old films showed an increase in pulmonary edema" H and P 12/06 pg.1- "An echocardiogram last admission in September that showed normal left ventricular systolic function" H and P 12/06 pg.1- "He has been on Lasix 80twice a day and [id number] twice a day" H and P 12/06 pg.2- "Volume overload with anasarca and pulmonary edema" Chest X-ray 12/06 pg.1 "Impression: Findings may be secondary to congestive heart failure with pulmonary edema and pleural effusion" RISKS: Hypertension- Consult Dr. Singh 12/06 pg.2 Cardiopulmonary arrest- PN 12/[address] Singh Renal failure-PN 12/[address] Singh Morbid Obesity- DS pg.1 12/07 Acute on chronic Respiratory failure- PN Dr. Singh12/06 pg.1 TREATMENTS: Chest X-ray 12/06 Furosemide (Lasix) 80mg SLOW IV- MAY 29 Spironolactone (Aldactone) 100mg PO- MAY 29 (This form is maintained as a part of the permanent medical record) 2014 [employer]. All Rights Reserved [email or web address] [not provided] MTDD
== END 2018-12-07 10:22 | disposition expired | DRG 189 ==
LOC: OBSVTOIN 12:51 → T4-B 12:51 → CCU 17:43
PROVIDERS: ADMIT Internal Medicine Critical Care Medicine; ATTEND Internal Medicine Critical Care Medicine
PROC: 5A09357 Assistance with Respiratory Ventilation, Less than 24 Consecutive Hours, Continuous Positive Airway Pressure (ICD-10-PCS; principal; 2018-12-07)
PROC: 5A12012 Performance of Cardiac Output, Single, Manual (ICD-10-PCS; 2018-12-07)
PROC: 3E033XZ Introduction of Vasopressor into Peripheral Vein, Percutaneous Approach (ICD-10-PCS; 2018-12-07)
PROC: 0BH18EZ Insertion of Endotracheal Airway into Trachea, Via Natural or Artificial Opening Endoscopic (ICD-10-PCS; 2018-12-07)
PROC: 5A2204Z Restoration of Cardiac Rhythm, Single (ICD-10-PCS; 2018-12-07)
DX: J96.21 Acute and chronic respiratory failure with hypoxia (principal); D68.9 Coagulation defect, unspecified; Z68.41 Body mass index [BMI] 40.0-44.9, adult; I47.2 Ventricular tachycardia; J81.1 Chronic pulmonary edema; R18.8 Other ascites; E87.70 Fluid overload, unspecified; G47.30 Sleep apnea, unspecified; K74.60 Unspecified cirrhosis of liver; E66.01 Morbid (severe) obesity due to excess calories; I95.9 Hypotension, unspecified; I46.8 Cardiac arrest due to other underlying condition; R59.0 Localized enlarged lymph nodes; N19 Unspecified kidney failure; I27.20 Pulmonary hypertension, unspecified; Z79.899 Other long term (current) drug therapy; Z87.891 Personal history of nicotine dependence; I10 Essential (primary) hypertension; E80.6 Other disorders of bilirubin metabolism; I46.9 Cardiac arrest, cause unspecified
CPT/HCPCS: 36415; 71045; 80048; 80076; 82140; 82805; 85025; 85610; 87040; 94640; 94660; J0153; J0171; J1265; J1940; J1956; J7620; P9047